=== PATIENT | female | born 1940 | race Two or more races ===

== ENCOUNTER 2024-11-26 16:07 | Inpatient (IN) | payer OTHER, MEDICAID, MEDICARE, SELFPAY ==
[2024-11-26 16:09] VITALS: BMI 26.4
[2024-11-26 16:40] VITALS: BP 109/69; PULSE 102; RESP 18; TEMP 37.4; O2SAT 92
--- NOTE | 2024-11-26 16:44 | XR_ITS ---
Examination: AP lateral chest 2 views TECHNIQUE: Upright AP lateral chest 2 views Date and time: November 26, 2024 1709 hours INDICATIONS: Chest pain today. FINDINGS: Normal heart size. Moderate hyperexpansion. No pneumonia or pulmonary edema IMPRESSION: COPD, moderate hyperexpansion No pneumonia or pulmonary edema
--- NOTE | 2024-11-26 16:44 | EKG_ITS ---
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
[2024-11-26 17:10] LABS: Basophils # (Auto) 0.1 Thou/mm3 (0.0-0.2); Basophils % (Auto) 1 % (0-2.5); Eosinophils # (Auto) 0.1 Thou/mm3 (0.0-0.5); Eosinophils % (Auto) 1 % (0-10); Hematocrit 49.5 % (36.0-46.0); Hemoglobin 17.1 g/dL (12.0-16.0); Immature Granulocytes Auto 0.04 Thou/mm3 (0.00-0.00); Lymphocytes # (Auto) 2.6 Thou/mm3 (1.0-4.8); Lymphocytes % (Auto) 20 % (10-50); Mean Corpuscular HGB Conc 34.5 g/dl (31.0-37.0); Mean Corpuscular Hemoglobin 30.5 pg (25.0-35.0); Mean Corpuscular Volume 88 fL (80-100); Monocytes # (Auto) 0.8 Thou/mm3 (0.0-0.8); Monocytes % (Auto) 6 % (0-12); Neutrophils # (Auto) 9.1 Thou/mm3 (1.8-7.7); Neutrophils % (Auto) 72 % (37-80); Nucleated Red Blood Cell # 0.00 Thou/mm3 (0.00-0.00); Nucleated Red Blood Cell % 0 /100 WBC (0); Platelet Count 159 Thou/mm3 (140-440); RDW Standard Deviation 44.0 fL (36.4-46.3); Red Blood Count 5.60 Miln/mm3 (4.00-5.20); White Blood Count 12.7 Thou/mm3 (3.6-11.0)
[2024-11-26 17:27] LABS: INR 1.0 (0.9-1.3); Partial Thromboplastin Time 27.3 Seconds (22.0-36.0); Prothrombin Time 11.1 Seconds (9.0-12.2)
[2024-11-26 17:39] LABS: B-Type Natriuretic Peptide 31 pg/mL (0-100)
[2024-11-26 17:51] LABS: Alanine Aminotransferase 7 U/L (10-49); Albumin, Serum 4.7 gm/dL (3.4-4.8); Albumin/Globulin Ratio 1.4 (1.2-2.2); Alkaline Phosphatase 95 U/L (46-116); Anion Gap 12 (7-16); Aspartate Amino Transferase 19 U/L (0-34); BUN/Creatinine Ratio 12 Ratio (12-20); Bilirubin,Total 0.7 mg/dL (0.3-1.2); Blood Urea Nitrogen 17 mg/dL (9-23); Calcium 10.6 mg/dL (8.3-10.6); Calcium (Corrected) 10.6 mg/dL (8.5-10.1); Carbon Dioxide 18.2 mMol/L (20.0-31.0); Chloride 109 mMol/L (98-107); Creatinine (Component) 1.4 mg/dL (0.6-1.3); Estimated Creatinine Clearance 30.2 mL/min (>60); Globulin 3.3 gm/dL (2.3-3.5); Glucose 130 mg/dL (74-106); Magnesium 2.2 mg/dL (1.6-2.6); Osmolality,Calculated 281 (275-295); Potassium 4.2 mMol/L (3.4-5.1); Sodium 139 mMol/L (136-145); Total Protein 8.0 gm/dL (5.7-8.2); Troponin I < 0.020 ng/mL (0.0-0.045); eGFR 38 See Note
[2024-11-26 18:09] LABS: Strep A Rapid Negative (Negative)
[2024-11-26 21:55] VITALS: BP 100/79; PULSE 100; RESP 17; TEMP 37.7; O2SAT 93
[2024-11-26 22:04] LABS: Collection Type, Urine Clean Catch
--- NOTE | 2024-11-26 22:07 | PD.EDDENTL ---
ED Dental RME/HPI General Chief complaint: Weakness Stated complaint: THROAT PAIN AND FATIGUED X3 DAYS Time Seen by Provider: 11/26/24 21:53 Arrival date/time: 11/26/24 16:07 RME / HPI RME / HPI Narrative: DR. ARMENDARIZ MAIN ED EVALUATION: 83 y/o female with Hx of smoking presents to ED c/o throat pain and painful swallowing x 1 week. Patient has now gone 3 days without food or water due to the pain. Patient also reports gooey stuff that develops in her throat. She has been holding her throat to be able to swallow very small amounts of water. Denies vomiting, diarrhea, constipation, and bloody or tarry stool. Denies fever and chills. Related Data Home Medications ?Medication ?Instructions ?Recorded ?Confirmed albuterol sulfate 90 mcg/actuation 2 puff inhalation Q6H PRN Wheezing 03/30/21 03/30/21 aerosol inhaler gabapentin 400 mg capsule 400 mg PO HS 03/30/21 03/30/21 lisinopril 10 mg tablet 10 mg PO QDAY 03/30/21 03/30/21 lorazepam 0.5 mg tablet 0.5 mg PO QDAY 03/30/21 03/30/21 lovastatin 20 mg tablet 20 mg PO HS 03/30/21 03/30/21 Previous Rx's ?Medication ?Instructions ?Recorded hydrocodone 10 mg-acetaminophen 1 tab PO TID PRN breakthrough pain 04/01/21 325 mg tablet #0 tabs Allergies Allergy/AdvReac Type Severity Reaction Status Date / Time codeine Allergy Severe PASS OUT Verified 11/26/24 16:09 Review of Systems Review of Systems Systems Reviewed: All systems reviewed, normal except as documented Past Medical History Social History SMOKING STATUS: Former smoker ED Exam Narrative Physical exam: GENERAL APPEARANCE: alert and oriented x 4, well-developed, well-nourished, no acute distress VITALS: All vitals were reviewed and the pulse ox is 93% on room air, which is abnormal according to my interpretation. HEENT: Normocephalic, atraumatic; pupils equal, round, reactive to light; EOMI; Dry lips, tacky mucous membranes, pink; oropharynx clear NECK: Supple LUNGS: CTABL; no wheezes, no rales, no rhonchi HEART: Regular rate, regular rhythm; normal S1, S2; no murmurs ABDOMEN: non distended; normal BS; soft, no tenderness, no guarding, no rebound; no masses, no organomegaly, no hernia BACK: no CVA tenderness EXTREMITIES: atraumatic; no edema NEUROLOGIC: awake; alert and oriented x4; cranial nerves II-XII grossly intact; no focal sensory or motor deficits PSYCHIATRIC: appropriate mood and affect SKIN: warm, dry, normal color; no rashes Course Course Course Narrative: CXR is ordered for determining the etiology of shortness of breath. Quality Measures none Orders Category Date Time Status Bedside COVID-19 Antigen Test NOW Care 11/26/24 16:44 Active Bedside Influenza A&B Antigen Test NOW Care 11/26/24 16:44 Completed EKG (ED ONLY) *Do not use* NOW Care 11/26/24 16:44 Completed Endoscopy Consents .On arrival Care 11/26/24 22:37 Active NPO after Midnight ONCE Care 11/26/24 22:13 Active Consult to Gastroenterology Stat Cons 11/26/24 22:13 Ordered Diet NPO after Midnight Diet 11/27/24 00:01 Active EKG (ED Only) Stat Exams 11/26/24 16:44 Draft XR chest 2V Stat Exams 11/26/24 16:44 Completed B-Type Natriuretic Peptide Stat Lab 11/26/24 17:04 Completed CBC Stat Lab 11/26/24 17:04 Completed Comprehensive Metabolic Panel Stat Lab 11/26/24 17:04 Completed Magnesium Stat Lab 11/26/24 17:04 Completed Partial Thromboplastin Time Stat Lab 11/26/24 17:04 Completed Prothrombin Time with INR Stat Lab 11/26/24 17:04 Completed Strep A Rapid Stat Lab 11/26/24 17:15 Completed Troponin I Stat Lab 11/26/24 17:04 Completed Urinalysis Stat Lab 11/26/24 21:59 Completed Sodium Chloride 0.9% 1000 ml [Ns] 1,000 ml Med 11/26/24 21:54 Discontinued IV 999 mls/hr Sodium Chloride 0.9% 1000 ml [Ns] 1,000 ml Med 11/26/24 21:54 Discontinued IV 999 mls/hr Vital Signs Vital signs: Vital Signs Temperature 99.4 F 11/26/24 16:40 Pulse Rate 102 H 11/26/24 16:40 Respiratory Rate 18 11/26/24 16:40 Blood Pressure 109/69 11/26/24 16:40 Pulse Oximetry (%) 92 L 11/26/24 16:40 Oxygen Delivery Method Room Air 11/26/24 16:40 Dental / Oral MDM Narrative MDM Narrative:: Scribe Attestation: I, Qiandyllan Joe, am scribing for and in the presence of Dr. Armendariz. Provider Notation: Although this document has been carefully reviewed, there may still be some phonetic and other typographical errors.? These errors are purely grammatical due to imperfections in the software program and should not be construed in any way to? compromise the substance of the patient's medical care during this visit. Patient data External records reviewed:: [facility] previous records (No recent ED records available for review.) Clinical information provided by:: patient Social determinants that could affect healthcare access:: none Patient has the following chronic illnesses:: None reported How is presenting disease/condition affected by chronic disease/condition?: no chronic disease Evaluation data The following diagnostics were reviewed and interpreted by me:: lab results, radiology exam(s) and EKG tracing(s) (EKG manual reading, my interpretation: sinus tachycardia, rate: 107 bpm, no ST elevation, no acute ischemic changes.) Lab and/or radiology exams considered but not ordered:: None Interpretation Summary: RADIOLOGY Chest X-Ray: FINDINGS: Normal heart size. Moderate hyperexpansion. No pneumonia or pulmonary edema IMPRESSION: COPD, moderate hyperexpansion No pneumonia or pulmonary edema Medications / Prescriptions Medications or Prescriptions considered but not ordered:: None Medication administrations:: Medication Administration History Acetaminophen (Acetaminophen 325 Mg Tablet) 650 mg PO Q6H PRN PRN Reason: PAIN SCALE 1-3 (mild Stop: 12/26/24 22:48 Heparin Sodium (Porcine) (Heparin Sod Inj 5000 Unit/Ml Vial) 5,000 unit SC Q12HR PHILIPPE Stop: 12/11/24 08:59 Lactated Ringer's (Lactated Ringers) 1,000 mls @ 75 mls/hr IV .[id number] HPILIPPE Stop: 11/27/24 12:19 Last Admin: 11/26/24 23:15 Dose: 75 mls/hr Documented By: DARON Ondansetron HCl (Ondansetron Inj 2 Mg/Ml Inj 2 Ml) 4 mg IVP Q6H PRN; Protocol PRN Reason: NAUSEA OR VOMITING Stop: 12/26/24 22:48 Sennosides (Senna Tablet) 1 tab PO QDAY PRN; Protocol PRN Reason: constipation Stop: 12/26/24 22:48 Discontinued Medications Sodium Chloride (Ns) 1,000 mls @ 999 mls/hr IV .Q1H1M ONE Stop: 11/26/24 22:54 Last Infusion: 11/26/24 23:18 Dose: Infused Documented By: Admin: 11/26/24 22:17 Dose: 999 mls/hr Documented By: JACEK Sodium Chloride (Ns) 1,000 mls @ 999 mls/hr IV .Q1H1M ONE Stop: 11/26/24 22:54 Last Infusion: 11/26/24 23:18 Dose: Infused Documented By: Admin: 11/26/24 22:17 Dose: 999 mls/hr Documented By: JACEK See above Consultations Consultation(s) initiated? (list below): Yes Consultation #1 (Physician, Specialty, Details): Discussed with Dr. De Dios for consult. Reviewed the patient?s HPI, PMHx, lab and/or radiology results. Treatment plan was discussed. Will evaluate and perform endoscopy in the morning. Time: 22:12 Consultation #2 (Physician, Specialty, Details): Discussed with Resident Physician for Dr. Ceja for admission. Reviewed the patient?s HPI, PMHx, lab and/or radiology results. Discussed treatment plan. Will consult an admission to the hospitalist. Time: 22:21 Diagnosis Most likely diagnosis given after review of the tests above:: Dysphagia, Odynophagia Admission Indicated Admission indicated?: indicated Explain why admission is indicated or not indicated:: Dysphagia, Odynophagia Admission Request Was there a request for admission?: Yes Admission Attestation Admission request attestation: Discussed case with [] from Hospitalist service regarding admission. Discussed patients ED course, exam findings, labs, and radiology results. The Hospitalist [agrees,declines] to accept the patient for admission. Disposition Plan Disposition Plan: Admit Discharge Plan Plan Patient Disposition: Admit Acute Care w/in Hospital Problem List Clinical Impression: Dysphagia, Odynophagia
[2024-11-26 22:12] LABS: Bilirubin,Urine Negative (Negative); Blood,Urine Negative (Negative); Clarity,Urine Clear (Clear/Hazy); Color,Urine Yellow (Lt Yel-Yel); Glucose, Urine Negative (Negative); Ketones,Urine Trace (Negative); Leukocyte Esterase,Urine Negative (Negative); Nitrite,Urine Negative (Negative); PH,Urine 6.0 (5.0-7.0); Protein,Urine 1+ (Neg - Trace); RBC,Urine 4 /hpf (0-3); Specific Gravity,Urine 1.026 (1.001-1.035); Squamous Epithelial Cell,Urine 2 /hpf (0-5); Urobilinogen,Urine Negative mg/dL (0.0-1.0); WBC,Urine < 1 /hpf (0-5)
[2024-11-26] MEDS: SODIUM CHLORIDE 0.9% 1000 ML 1,000 ML 999 ML IV ×2 (22:17)
--- NOTE | 2024-11-26 22:37 | PD.IMCONS ---
HPI Data of Consult Primary Care Provider: Jihan Bishop PA-C Consult Narrative Reason for consult: Progressive dysphagia History of present illness: 83 years old female who is an active smoker presented to the hospital with acute onset of dysphagia and odynophagia subsequently got admitted cc:: cc: Review of Systems Review of Systems Systems Reviewed: All systems reviewed, normal except as documented Past Medical History Surgical History OTHER SURGICAL HX: Bronchial asthma/COPD Essential hypertension Meds Home Medications and Allergies Home Medications ?Medication ?Instructions ?Recorded ?Confirmed ?Type albuterol sulfate 90 mcg/actuation 2 puff inhalation Q6H PRN Wheezing 03/30/21 11/27/24 History aerosol inhaler lisinopril 10 mg tablet 10 mg PO QDAY 03/30/21 11/27/24 History lorazepam 0.5 mg tablet 0.5 mg PO QDAY 03/30/21 11/27/24 History lovastatin 20 mg tablet 20 mg PO HS 03/30/21 11/27/24 History atorvastatin 20 mg tablet 20 mg PO HS 11/27/24 11/27/24 History escitalopram oxalate 10 mg tablet 10 mg PO QDAY 11/27/24 11/27/24 History ibuprofen 600 mg tablet 600 mg PO Q6H PRN pain 11/27/24 11/27/24 History Allergies Allergy/AdvReac Type Severity Reaction Status Date / Time codeine Allergy Severe PASS OUT Verified 11/26/24 16:09 Exam Vital Signs Temp Pulse Resp BP Pulse Ox O2 Del Method 99.9 F 100 17 100/79 93 L Room Air 11/26/24 21:55 11/26/24 21:55 11/26/24 21:55 11/26/24 21:55 11/26/24 21:55 11/26/24 21:55 Constitutional Comments: Alert oriented Routine Respiratory Exam Comments: Normal to auscultation Routine Abdominal Exam Comments: Soft nontender Results Labs 11/27/24 05:12 11/27/24 05:12 Labs: Short CBC 11/26/24 Range/Units 17:04 WBC 12.7 H (3.6-11.0) Thou/mm3 Hgb 17.1 H (12.0-16.0) g/dL Hct 49.5 H (36.0-46.0) % Plt Count 159 (140-440) Thou/mm3 BMP 11/26/24 17:04 Sodium 139 Potassium 4.2 Chloride 109 H Carbon Dioxide 18.2 L BUN 17 Creatinine 1.4 H Glucose 130 H Calcium 10.6 Cardiac Enzymes 11/26/24 Range/Units 17:04 Troponin I < 0.020 (0.0-0.045) ng/mL Liver Function 11/26/24 Range/Units 17:04 Total Bilirubin 0.7 (0.3-1.2) mg/dL AST 19 (0-34) U/L ALT 7 L (10-49) U/L Alkaline Phosphatase 95 (46-116) U/L Albumin 4.7 (3.4-4.8) gm/dL Urine 11/26/24 Range/Units 21:59 Urine Color Yellow (Lt Yel-Yel) Urine Clarity Clear (Clear/Hazy) Urine pH 6.0 (5.0-7.0) Ur Specific [place] 1.026 (1.001-1.035) Urine Protein 1+ A (Neg - Trace) Urine Glucose (UA) Negative (Negative) Assessment and Plan Additional Assessment & Plan Additional Plan: Progressive dysphagia sudden onset with a dyne aphasia Plan Consent obtained for fiberoptic esophagogastroduodenoscopy with possible biopsy possible therapeutic intervention under intravenous moderate sedation Other medical problems include Essential hypertension Bronchial asthma/COPD Hyperlipidemia Thank you very much for the opportunity to participate in the care of this patient
--- NOTE | 2024-11-26 22:51 | ESHP_ITS ---
<Statement entered by Arya Crump MD - 11/27/24 03:25> I have personally seen and examined the patient. I agree with the resident's assessment and plan as documented below. Arya Crump, DO PGY-2 Internal Medicine - GME Documentation for date of: 11/26/24 HPI History of Present Illness History of present illness: 83 y/o female with Hx of smoking presents to ED c/o throat pain and painful swallowing for the past 3 days. She denies having problems initiating swallowing, she describes the it as food getting caught up and spitting up she states that she is unable to swallow food and water. She denies any changes in appetite, fevers, chills, night sweats, and pain with urination or bowel movements, blood in urine or stool. She was accompanied in by her adult daughter who lives with her. She endorses around 30 years of smoking history but now only smokes 2-3 packs a week as of recently. Patient confirms she is full code. Medical History: esophagitis,, GERD. hypertension Surgical History: cholecystectomy Allergies: codeine makes her pass out Medications: albuterol, Gabapentin. 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 No pneumonia or pulmonary edema. Urinalysis showed elevated RBCs +1 protein. Labs revealed elevated WBC, RBC, Hgb, hct, and Calcium with decreased CO2. Patient is admitted to the hospital for esophageal dysphagia will undergo workup (EGD) by GI in the morning. Exam Vital Signs Temp Pulse Resp BP Pulse Ox O2 Del Method 99.9 F 100 17 100/79 93 L Room Air 11/26/24 21:55 11/26/24 21:55 11/26/24 21:55 11/26/24 21:55 11/26/24 21:55 11/26/24 21:55 Narrative Exam GEN: AAOX3 NAD Cooperitive Neuro: Cranial nerves intact, no focal neurological deficits HEENT: NCAT trachea midline moist mucous membranes CVS: S1S2 Present no M/R/G Respi: Rhonchi heard bilaerally. No stridor or wheezing noted. ABD: Soft nontender bowel sounds present in all 4 quadrants rectal exam not performed Skin: warm, dry and intact without rashes or lesions. Nailbeds pink with no cyanosis or clubbing. Extremities: Pulses 2+ no peripheral edema present Back: Spine normal without deformity or tenderness, no CVA tenderness Results: Labs 11/26/24 17:04 11/26/24 17:04 Labs: Short CBC 11/26/24 Range/Units 17:04 WBC 12.7 H (3.6-11.0) Thou/mm3 Hgb 17.1 H (12.0-16.0) g/dL Hct 49.5 H (36.0-46.0) % Plt Count 159 (140-440) Thou/mm3 BMP 11/26/24 17:04 Sodium 139 Potassium 4.2 Chloride 109 H Carbon Dioxide 18.2 L BUN 17 Creatinine 1.4 H Glucose 130 H Calcium 10.6 Cardiac Enzymes 11/26/24 Range/Units 17:04 Troponin I < 0.020 (0.0-0.045) ng/mL Liver Function 11/26/24 Range/Units 17:04 Total Bilirubin 0.7 (0.3-1.2) mg/dL AST 19 (0-34) U/L ALT 7 L (10-49) U/L Alkaline Phosphatase 95 (46-116) U/L Albumin 4.7 (3.4-4.8) gm/dL Urine 11/26/24 Range/Units 21:59 Urine Color Yellow (Lt Yel-Yel) Urine Clarity Clear (Clear/Hazy) Urine pH 6.0 (5.0-7.0) Ur Specific [place] 1.026 (1.001-1.035) Urine Protein 1+ A (Neg - Trace) Urine Glucose (UA) Negative (Negative) Quality Measures Quality Measures none Advance care planning discussed with:: patient and sibling Medications Home Medications and Allergies Home Medications ?Medication ?Instructions ?Recorded ?Confirmed ?Type albuterol sulfate 90 mcg/actuation 2 puff inhalation Q 6H PRN Wheezing 03/30/21 03/30/21 History aerosol inhaler gabapentin 400 mg capsule 400 mg PO HS 03/30/21 History lisinopril 10 mg tablet 10 mg PO QDAY 03/30/2103/30 History lorazepam 0.5 mg tablet 0.5 mg PO QDAY 03/30/2103/09 History lovastatin 20 mg tablet 20 mg PO HS 03/30/21 1 History Allergies Allergy/AdvReac Type Severity Reaction Status Date / Time codeine Allergy Severe PASS OUT Verified 11/26/24 16:09 Visit Medications Sodium Chloride (Ns) 1,000 mls @ 999 mls/hr IV .Q1H1M ONE Stop: 11/26/24 22:54 Last Admin: 11/26/24 22:17 Dose: 999 mls/hr Sodium Chloride (Ns) 1,000 mls @ 999 mls/hr IV .Q1H1M ONE Stop: 11/26/24 22:54 Last Admin: 11/26/24 22:17 Dose: 999 mls/hr Assessment & Plan Plan 83 y/o female with Hx of smoking presents to ED c/o throat pain and painful swallowing for the past 3 days. #oropharngeal vs esophageal dysphagia Patient does not report trouble initiating swallowing. Describes the sensation of food and liquids being caught in her throat. Has a history of GERD and esophagitis, and long time smoking raising concerns for squamous cell cancer of the throat. Plan GI is consulted, recs appreciated. FUP with EGD in the morning NPO for EGD #ELIZABETH Creatinine 1.4, Cr/Cl 30.2 and eGFR 38. Plan LR 75 cc FUP renal function panel #Elevated RBC, Hgb, HCT Most likely humoural concentration due to volume depletion - patient not able to drink for 3 days. Plan Volume replete patient with LR Health Maintenance Lines: PIV Diet: NPO Bowel: Senna GI prophylaxis: zofran DVT prophylaxis: heparin Dispo: 3 days of esophageal dysphagia plan to EGD in am will follow up with GI recs Code: Full Patient seen and evaluated with attending Dr. Ceja and Dr. Crump. Note written by Gurpreet Peters MD PGY-1 Attending Provider Attestation/Addendum I attest that I was physically present for the evaluation, physical examination, lab and imaging review of the patient with the residents. I discussed the case with the residents and agree with the findings and plans of care as documented above. After examination of the patient and review of the clinical data I feel that this patient needs admission to the hospital for further treatment/evaluation. Patient is an 83 years old female with past medical history of hypertension who presented to the ED with complaint of pain and difficulty with swallowing. She has been having difficulty with initiating swallowing and has been having feeling of food getting caught up for the last 3 days. She has been having difficulty swallowing with both solids and liquids. Denies any fever, chills, change in bowel or bladder habit. In the ED, chest x-ray showed findings of COPD. Lab results showed leukocytosis, elevated hemoglobin, calcium of 10.6 likely from hemoconcentration. She is also noted to have BUN/creatinine of 17/1.4. Has bicarbonate level of 18.2, lactate and beta hydroxybutyrate within normal limits. Gastroenterology has been contacted by ED, patient is planned for EGD tomorrow. We will admit the patient for management of dysphagia leading to decreased oral intake. We will keep her n.p.o. for EGD tomorrow. Started on IV hydration for ELIZABETH, we will follow-up with renal panel. Fred Ceja MD
[2024-11-26 23:14] LABS: Lactate (Lactic Acid) 1.9 mMol/L (0.4-2.0)
[2024-11-26] MEDS: RINGERS LACTATED 1000 ML 1,000 ML 75 ML IV (23:15)
[2024-11-26 23:16] LABS: Beta Hydroxybutyrate 0.5 mmol/L (<0.6)
[2024-11-26 23:53] VITALS: BMI 28.1
[2024-11-27] VITALS (17 sets, daily range): BP systolic 135–194; BP diastolic 63–117; PULSE 73–94; RESP 12–22; TEMP 36.2–37.2; O2SAT 91–100; BMI 28.0
--- NOTE | 2024-11-27 00:32 | PC.NURSE ---
pt stated will ask daughter to bring list of meds tomorrow to complete med rec.
--- NOTE | 2024-11-27 01:25 | PC.NURSE ---
pt ambulating around [place] with daughter at this time.
--- NOTE | 2024-11-27 02:47 | PC.NURSE ---
pt complains of restless leg pain and requested SCD's. Dr castillo notified. new order received.
[2024-11-27 06:21] LABS: Basophils # (Auto) 0.1 Thou/mm3 (0.0-0.2); Basophils % (Auto) 1 % (0-2.5); Eosinophils # (Auto) 0.1 Thou/mm3 (0.0-0.5); Eosinophils % (Auto) 1 % (0-10); Hematocrit 46.0 % (36.0-46.0); Hemoglobin 15.5 g/dL (12.0-16.0); Immature Granulocytes Auto 0.02 Thou/mm3 (0.00-0.00); Lymphocytes # (Auto) 2.4 Thou/mm3 (1.0-4.8); Lymphocytes % (Auto) 20 % (10-50); Mean Corpuscular HGB Conc 33.7 g/dl (31.0-37.0); Mean Corpuscular Hemoglobin 31.1 pg (25.0-35.0); Mean Corpuscular Volume 92 fL (80-100); Monocytes # (Auto) 0.8 Thou/mm3 (0.0-0.8); Monocytes % (Auto) 6 % (0-12); Neutrophils # (Auto) 8.6 Thou/mm3 (1.8-7.7); Neutrophils % (Auto) 72 % (37-80); Nucleated Red Blood Cell # 0.00 Thou/mm3 (0.00-0.00); Nucleated Red Blood Cell % 0 /100 WBC (0); Platelet Count 167 Thou/mm3 (140-440); RDW Standard Deviation 46.3 fL (36.4-46.3); Red Blood Count 4.99 Miln/mm3 (4.00-5.20); White Blood Count 12.0 Thou/mm3 (3.6-11.0)
[2024-11-27] MEDS: MORPHINE SULF INJ 10 MG/ML VIAL IVP ×2 (06:31→17:05)
[2024-11-27 06:42] LABS: Albumin, Serum 4.3 gm/dL (3.4-4.8); Anion Gap 11 (7-16); BUN/Creatinine Ratio 23 Ratio (12-20); Blood Urea Nitrogen 27 mg/dL (9-23); Calcium 9.7 mg/dL (8.3-10.6); Calcium (Corrected) 9.7 mg/dL (8.5-10.1); Carbon Dioxide 23.9 mMol/L (20.0-31.0); Chloride 110 mMol/L (98-107); Creatinine (Component) 1.2 mg/dL (0.6-1.3); Estimated Creatinine Clearance 36.3 mL/min (>60); Glucose 106 mg/dL (74-106); Osmolality,Calculated 293 (275-295); Phosphorous 2.5 mg/dL (2.4-5.1); Potassium 3.8 mMol/L (3.4-5.1); Sodium 145 mMol/L (136-145); eGFR 45 See Note
--- NOTE | 2024-11-27 13:58 | ESPR_ITS ---
<Statement entered by Prudence Gomez MD - 11/28/24 14:41> I have reviewed the note and agree with the resident's assessment & plan with exceptions as below. I have personally reviewed labs, imaging, home meds/prior records, examined the patient, formulated and discussed management plan with the IM team. Patient examined at bedside today. Patient reports no recent weight loss, however acute onset of her dysphagia. She says this is never happened before, no recent travel. There has been significant smoking history in the past. Patient will need further workup including EGD tonight for evaluation of possible malignant process that could be contributing to her dysphagia. GI on consult, appreciate recommendations. Will also get speech therapy on for further recommendations. Repeat hematology and chemistry in the a.m. Prudence Gomez, PGY-2 Internal Medicine Documentation for date of: 11/27/24 Subjective Subjective Interval history: Patient seen and examined at bedside this morning. The patient had restless legs, and discomfort in the bilateral lower extremity overnight and had difficulty sleeping. She received Morphine 1mg IVx1 to help with the discomfort early this morning, which allowed her to finally get some sleep. She denies having a bowel movement during her hospital stay, but is able to pass gas. She denies dysuria, chest pain, fevers, and chills. She confirms sob. Exam Vital Signs Temp Pulse Resp BP Pulse Ox O2 Del Method 97.1 F 83 18 135/79 H 94 L Room Air 11/27/24 12:00 11/27/24 12:00 11/27/24 12:00 11/27/24 12:00 11/27/24 12:11/27/24 12:00 Narrative Exam General: Patient is A&O X3, NAD HEENT: Normocephalic atraumatic, PERRL, EOMI, Cardio: RRR, S1,S2, no murmurs rubs or gallops, 2+ peripheral pulses, no lower extremity edema Pulm: Wheezing auscultated in the bilateral lower lobes, no crackles or rhonchi noted Abdominal:Bowel sounds present x4, abdomen soft, nontender with no rigidity or guarding MSK: 5/5 strength bilateral upper and lower extremity. Neuro: CN2-12 grossly intact, sensation intact bilateral upper and lower extremity Objective Labs 11/28/24 05:11/28/24 05:01 Labs: Laboratory Results - last 24 hr 11/26/24 11/26/24 11/26/24 17:04 17:15 21:59 WBC 12.7 H RBC 5.60 H Hgb 17.1 H Hct 49.5 H MCV 88 MCH 30.5 MCHC 34.5 RDW Std Deviation 44.0 Plt Count 159 Neut % (Auto) 72 Lymph % (Auto) 20 Rains % (Auto) 6 Eos % (Auto) 1 Baso % (Auto) 1 Neut # (Auto) 9.1 H Lymph # (Auto) 2.6 Rains # (Auto) 0.8 Eos # (Auto) 0.1 Baso # (Auto) 0.1 Immature Gran # (Auto) 0.04 H Absolute Nucleated RBC 0.00 Immature Gran % 0 Nucleated RBC % 0 PT 11.1 INR 1.0 APTT 27.3 Sodium 139 Potassium 4.2 Chloride 109 H Carbon Dioxide 18.2 L Anion Gap 12 BUN 17 Creatinine 1.4 H Estim Creat Clear Calc 30.2 L eGFR 38 L BUN/Creatinine Ratio 12 Glucose 130 H Calculated Osmolality 281 Lactic Acid Calcium 10.6 Corrected Calcium 10.6 H Phosphorus Magnesium 2.2 Total Bilirubin 0.7 AST 19 ALT 7 L Alkaline Phosphatase 95 Troponin I < 0.020 B-Natriuretic Peptide 31 Total Protein 8.0 Albumin 4.7 Globulin 3.3 Albumin/Globulin Ratio 1.4 Beta-Hydroxybutyrate/Acetoacetate Ur Collection Type Clean Catch Urine Color Yellow Urine Clarity Clear Urine pH 6.0 Ur Specific [place] 1.026 Urine Protein 1+ A Urine Glucose (UA) Negative Urine Ketones Trace Urine Blood Negative Urine Nitrite Negative Urine Bilirubin Negative Urine Urobilinogen (Auto) Negative Ur Leukocyte Esterase Negative Urine RBC 4 H Urine WBC < 1 Ur Squamous Epith Cells 2 Urine Bacteria None Group A Strep Rapid Negative 11/26/24 11/27/24 23:00 05:12 WBC 12.0 H RBC 4.99 Hgb 15.5 Hct 46.0 MCV 92 MCH 31.1 MCHC 33.7 RDW Std Deviation 46.3 Plt Count 167 Neut % (Auto) 72 Lymph % (Auto) 20 Rains % (Auto) 6 Eos % (Auto) 1 Baso % (Auto) 1 Neut # (Auto) 8.6 H Lymph # (Auto) 2.4 Rains # (Auto) 0.8 Eos # (Auto) 0.1 Baso # (Auto) 0.1 Immature Gran # (Auto) 0.02 H Absolute Nucleated RBC 0.00 Immature Gran % 0 Nucleated RBC % 0 PT INR APTT Sodium 145 Potassium 3.8 Chloride 110 H Carbon Dioxide 23.9 Anion Gap 11 BUN 27 H Creatinine 1.2 Estim Creat Clear Calc 36.3 L eGFR 45 L BUN/Creatinine Ratio 23 H Glucose 106 Calculated Osmolality 293 Lactic Acid 1.9 Calcium 9.7 Corrected Calcium 9.7 Phosphorus 2.5 Magnesium Total Bilirubin AST ALT Alkaline Phosphatase Troponin I B-Natriuretic Peptide Total Protein Albumin 4.3 Globulin Albumin/Globulin Ratio Beta-Hydroxybutyrate/Acetoacetate 0.5 Ur Collection Type Urine Color Urine Clarity Urine pH Ur Specific [place] Urine Protein Urine Glucose (UA) Urine Ketones Urine Blood Urine Nitrite Urine Bilirubin Urine Urobilinogen (Auto) Ur Leukocyte Esterase Urine RBC Urine WBC Ur Squamous Epith Cells Urine Bacteria Group A Strep Rapid Quality Measures Quality Measures none Advance care planning discussed with:: patient Assessment & Plan Assessment Current Active Medications: Generic Name Dose Route Start Last Admin Trade Name Freq PRN Reason Stop Dose Admin Acetaminophen 650 mg 11/26/24 22:49 Acetaminophen 325 Mg Tablet PO 12/26/24 22:48 Q6H PRN PAIN SCALE 1-3 (mild Hydrocodone Bitart/Acetaminophen 1 tab 11/27/24 11:03 Hydrocodone/Apap 10/325 Tab PO 12/02/24 11:02 Q8HR PRN pain 4-7 or breakthrough pain Atorvastatin Calcium 20 mg 11/27/24 21:00 Atorvastatin Calcium 20 Mg Tablet PO 12/27/24 20:59 HS [facility] Escitalopram Oxalate 10 mg 11/27/24 11:15 11/27/24 12:01 Escitalopram Oxalate 10 Mg Tablet PO 12/27/24 11:14 Not Given QDAY [facility] Gabapentin 300 mg 11/27/24 11:15 11/27/24 12:01 Gabapentin 300 Mg Capsule PO 12/27/24 11:14 Not Given BID [facility] Heparin Sodium (Porcine) 5,000 unit 11/27/24 09:00 11/27/24 08:47 Heparin Sod Inj 5000 Unit/Ml Vial SC 12/11/24 08:59 Not Given Q12HR [facility] Lisinopril 10 mg 11/28/24 09:00 Lisinopril 2.5 Mg Tablet PO 12/28/24 08:59 QDAY [facility] Ondansetron HCl 4 mg 11/26/24 22:49 Ondansetron Inj 2 Mg/Ml Inj 2 Ml IVP 12/26/24 22:48 Q6H PRN NAUSEA OR VOMITING Protocol Sennosides 1 tab 11/26/24 22:49 Senna Tablet PO 12/26/24 22:48 QDAY PRN constipation Protocol Plan 83 y/o female with Hx of smoking, asthma, HTN, and T2DM presents to ED c/o throat pain and difficulty swallowing for the past 3 days. She was found to have ELIZABETH, and was admitted for dysphagia/odynophagia. #Esophageal dysphagia Patient does not report trouble initiating swallowing. Endorses sensation of food and liquids being caught in her throat. Has a history of GERD and gastritis, and significant smoking hx EGD 2020: mild chronic gastritis Sudden onset with inability to swallow solids and liquids at onset raises concern for mechanical obstruction due to peptic strictures, malignancy, paraesophageal hernia motility disorders such as achalasia/scleroderma/ERICH less likely Plan: GI is consulted, recs appreciated. Patient will undergo EGD this evening Patient is NPO #ELIZABETH Creatinine 1.4, Cr/Cl 30.2 and eGFR 38 on admit Downtrending today, notably BUN/Cr is 23 indicating prerenal elizabeth in the setting of the patient not tolerating po for the past 4 days Plan: Trend CMP #Asthma Hx of asthma, RR wnl, Spo2 range 93-94 overnight Bilateral wheezes noted in the bilateral lung bases Plan: -Albuterol sulfate 2 puff Q6H prn #HLD Home medication is atorvastatin 20 mg PO HS Plan: Resume once patient can tolerate po #Hypertension Patient home medication includes lisinopril 10mg po qd BP in the 130-140s systolic Plan: Resume once patient can tolerate po #Elevated RBC, Hgb, HCT (resolved) Most likely hemoconcentration due to volume depletion - patient not able to drink for 3 days. Volume repleted patient with LR Health Maintenance: Disposition: Med tele DVT Prophylaxis: Heparin Q12 GI Prophylaxis: None Diet: NPO CODE STATUS: Full Code Case and Plan discussed with my attending physician, Dr. Ferreira , and my senior resident, Dr. Patricia العراقي, [facility] Attending Provider Attestation/Addendum I have discussed and was present for the essential components of the history, physical examination, diagnosis, and treatment plan with the resident. I agree with the patient's care as documented by the resident and amended herein by me. Demar Ferreira DO. Although this document has been carefully reviewed, there may still be some phonetic and other typographical errors. These errors are purely grammatical due to imperfections in the software program and should not be construed in any way to compromise the substance of the patient's medical care during this visit.
--- NOTE | 2024-11-27 17:33 | PD.RESPRO ---
Documentation for date of: 11/27/24 Subjective Subjective Interval history: Patient is an 83-year-old female with past medical history of HTN, HLD, COPD, and DM presenting to the hospital for throat pain and difficulty swallowing. This started approximately 4 days ago when she woke up suddenly, felt a lump in her throat , and could not swallow anything, either solid or liquid. She has never had this happen before, and had not had any change in her activity prior to this happening. She denies any history of thyroid issues. PMH: HTN, DM, HLD, COPD PSH: Cholecystectomy Social history: 63Y X0.3 PPD = 18-[id number] history of smoking; current smoker; denies alcohol or substance use Exam Vital Signs Temp Pulse Resp BP Pulse Ox O2 Del Method 97.1 F 83 18 150/75 H 100 Room Air 11/27/24 15:38 11/27/24 15:38 11/27/24 15:38 11/27/24 15:38 11/27/24 15:38 11/27/24 15:38 Routine Neck Exam Comments: No swelling or obvious mass palpated; supraclavicular lymph nodes not palpable Routine Respiratory Exam Respiratory: Present lungs clear and CTA bilaterally Routine Cardiovascular Exam Cardiovascular: Present RRR, S1 and S2 Routine Abdominal Exam Abdominal: Present soft and normoactive bowel sounds Comments: Nontender with superficial or deep palpation Objective Labs 11/27/24 05:12 11/27/24 05:12 Labs: Laboratory Results - last 24 hr 11/26/24 11/26/24 11/26/24 17:04 17:15 21:59 WBC RBC Hgb Hct MCV MCH MCHC RDW Std Deviation Plt Count Neut % (Auto) Lymph % (Auto) [place] % (Auto) Eos % (Auto) Baso % (Auto) Neut # (Auto) Lymph # (Auto) [place] # (Auto) Eos # (Auto) Baso # (Auto) Immature Gran # (Auto) Absolute Nucleated RBC Immature Gran % Nucleated RBC % Sodium 139 Potassium 4.2 Chloride 109 H Carbon Dioxide 18.2 L Anion Gap 12 BUN 17 Creatinine 1.4 H Estim Creat Clear Calc 30.2 L eGFR 38 L BUN/Creatinine Ratio 12 Glucose 130 H Calculated Osmolality 281 Lactic Acid Calcium 10.6 Corrected Calcium 10.6 H Phosphorus Magnesium 2.2 Total Bilirubin 0.7 AST 19 ALT 7 L Alkaline Phosphatase 95 Troponin I < 0.020 B-Natriuretic Peptide 31 Total Protein 8.0 Albumin 4.7 Globulin 3.3 Albumin/Globulin Ratio 1.4 Beta-Hydroxybutyrate/Acetoacetate Ur Collection Type Clean Catch Urine Color Yellow Urine Clarity Clear Urine pH 6.0 Ur Specific [place] 1.026 Urine Protein 1+ A Urine Glucose (UA) Negative Urine Ketones Trace Urine Blood Negative Urine Nitrite Negative Urine Bilirubin Negative Urine Urobilinogen (Auto) Negative Ur Leukocyte Esterase Negative Urine RBC 4 H Urine WBC < 1 Ur Squamous Epith Cells 2 Urine Bacteria None Group A Strep Rapid Negative 11/26/24 11/27/24 23:00 05:12 WBC 12.0 H RBC 4.99 Hgb 15.5 Hct 46.0 MCV 92 MCH 31.1 MCHC 33.7 RDW Std Deviation 46.3 Plt Count 167 Neut % (Auto) 72 Lymph % (Auto) 20 [place] % (Auto) 6 Eos % (Auto) 1 Baso % (Auto) 1 Neut # (Auto) 8.6 H Lymph # (Auto) 2.4 [place]igg # (Auto) 0.8 Eos # (Auto) 0.1 Baso # (Auto) 0.1 Immature Gran # (Auto) 0.02 H Absolute Nucleated RBC 0.00 Immature Gran % 0 Nucleated RBC % 0 Sodium 145 Potassium 3.8 Chloride 110 H Carbon Dioxide 23.9 Anion Gap 11 BUN 27 H Creatinine 1.2 Estim Creat Clear Calc 36.3 L eGFR 45 L BUN/Creatinine Ratio 23 H Glucose 106 Calculated Osmolality 293 Lactic Acid 1.9 Calcium 9.7 Corrected Calcium 9.7 Phosphorus 2.5 Magnesium Total Bilirubin AST ALT Alkaline Phosphatase Troponin I B-Natriuretic Peptide Total Protein Albumin 4.3 Globulin Albumin/Globulin Ratio Beta-Hydroxybutyrate/Acetoacetate 0.5 Ur Collection Type Urine Color Urine Clarity Urine pH Ur Specific [place] Urine Protein Urine Glucose (UA) Urine Ketones Urine Blood Urine Nitrite Urine Bilirubin Urine Urobilinogen (Auto) Ur Leukocyte Esterase Urine RBC Urine WBC Ur Squamous Epith Cells Urine Bacteria Group A Strep Rapid Quality Measures Quality Measures none Assessment & Plan Assessment Current Active Medications: Generic Name Dose Route Start Last Admin Trade Name Freq PRN Reason Stop Dose Admin Acetaminophen 650 mg 11/26/24 22:49 Acetaminophen 325 Mg Tablet PO 12/26/24 22:48 Q6H PRN PAIN SCALE 1-3 (mild Hydrocodone Bitart/Acetaminophen 1 tab 11/27/24 11:03 Hydrocodone/Apap 10/325 Tab PO 12/02/24 11:02 Q8HR PRN pain 4-7 or breakthrough pain Albuterol 2 puff 11/27/24 17:07 Albuterol Inh 8 Gm INH 12/27/24 17:06 Q6HRRT PRN SHORTNESS OF BREATH OR WHEEZE Atorvastatin Calcium 20 mg 11/27/24 21:00 Atorvastatin Calcium 20 Mg Tablet PO 12/27/24 20:59 HS [facility] Escitalopram Oxalate 10 mg 11/27/24 11:15 11/27/24 12:01 Escitalopram Oxalate 10 Mg Tablet PO 12/27/24 11:14 Not Given QDAY [facility] Gabapentin 300 mg 11/27/24 11:15 11/27/24 12:01 Gabapentin 300 Mg Capsule PO 12/27/24 11:14 Not Given BID [facility] Heparin Sodium (Porcine) 5,000 unit 11/27/24 09:00 11/27/24 08:47 Heparin Sod Inj 5000 Unit/Ml Vial SC 12/11/24 08:59 Not Given Q12HR [facility] Lisinopril 10 mg 11/28/24 09:00 Lisinopril 2.5 Mg Tablet PO 12/28/24 08:59 QDAY [facility] Ondansetron HCl 4 mg 11/26/24 22:49 Ondansetron Inj 2 Mg/Ml Inj 2 Ml IVP 12/26/24 22:48 Q6H PRN NAUSEA OR VOMITING Protocol Sennosides 1 tab 11/26/24 22:49 Senna Tablet PO 12/26/24 22:48 QDAY PRN constipation Protocol Plan Patient is an 83-year-old female with PMH of COPD, HTN, DM, HLD presenting for throat pain and difficulty swallowing solids and liquids. #Throat pain/dysphagia No obvious mass palpated Plan: #COPD, HTN, DM, HLD Plan: Per primary team
--- NOTE | 2024-11-27 18:40 | PD.IMPROG ---
Documentation for date of: 11/27/24 Exam Vital Signs Temp Pulse Resp BP Pulse Ox O2 Del Method 97.1 F 77 18 150/75 H 100 Room Air 11/27/24 15:38 11/27/24 16:00 11/27/24 15:38 11/27/24 15:38 11/27/24 15:38 11/27/24 15:38 Objective Labs 11/27/24 05:12 11/27/24 05:12 Labs: Laboratory Results - last 24 hr 11/26/24 11/26/24 11/27/24 21:59 23:00 05:12 WBC 12.0 H RBC 4.99 Hgb 15.5 Hct 46.0 MCV 92 MCH 31.1 MCHC 33.7 RDW Std Deviation 46.3 Plt Count 167 Neut % (Auto) 72 Lymph % (Auto) 20 [place] % (Auto) 6 Eos % (Auto) 1 Baso % (Auto) 1 Neut # (Auto) 8.6 H Lymph # (Auto) 2.4 [place] # (Auto) 0.8 Eos # (Auto) 0.1 Baso # (Auto) 0.1 Immature Gran # (Auto) 0.02 H Absolute Nucleated RBC 0.00 Immature Gran % 0 Nucleated RBC % 0 Sodium 145 Potassium 3.8 Chloride 110 H Carbon Dioxide 23.9 Anion Gap 11 BUN 27 H Creatinine 1.2 Estim Creat Clear Calc 36.3 L eGFR 45 L BUN/Creatinine Ratio 23 H Glucose 106 Calculated Osmolality 293 Lactic Acid 1.9 Calcium 9.7 Corrected Calcium 9.7 Phosphorus 2.5 Albumin 4.3 Beta-Hydroxybutyrate/Acetoacetate 0.5 Ur Collection Type Clean Catch Urine Color Yellow Urine Clarity Clear Urine pH 6.0 Ur Specific [place] 1.026 Urine Protein 1+ A Urine Glucose (UA) Negative Urine Ketones Trace Urine Blood Negative Urine Nitrite Negative Urine Bilirubin Negative Urine Urobilinogen (Auto) Negative Ur Leukocyte Esterase Negative Urine RBC 4 H Urine WBC < 1 Ur Squamous Epith Cells 2 Urine Bacteria None Assessment & Plan Time Spent With Patient Time: Total time spent is greater than 50% in coordination of care (as documented) at patient's floor/unit and/or counseling patient:
--- NOTE | 2024-11-27 19:35 | SUR.PHASEI ---
received pt and report from JESSIE Merchant, pt arousable to voice. BP slightly elevated. Per BP flowsheet , bp is at running same during the procedure. will continue to monitor. Pt denies any pain or nausea,. IV intact, no s/s of infiltration or redness noted to site.
--- NOTE | 2024-11-27 19:47 | XR_ITS ---
Examination: CT soft tissue neck, with intravenous contrast. 2-D coronal reconstructions. 2-D sagittal reconstructions. Date and time of exam :November 27, 2024 2115 hours INDICATIONS: Difficulty swallowing today. CTDI: vol (mGy):10.7 DLP: (mGycm):235 Technique: 1.25 mm axial sections of the neck of the obtained. Coronal and sagittal reconstructions have been obtained. Intravenous contrast administered 50 cc Isovue-370. Low dose protocols were performed. One or more of the following dose reduction techniques were used; automated exposure control, adjustment of the mA and/or KV according to patient size, use of iterative reconstruction technique. Findings: Symmetrical nasopharynx oropharynx No pathologic cervical lymphadenopathy The larynx appears normal Thyroid lobes are not enlarged Cervical esophagus just does not show dilatation or wall thickening Advanced degenerative disc disease C4-C5, C5-C6 with prominent posterior osteophyte 5 mm at the inferior posterior margin C5 producing severe spinal stenosis Normal epiglottis IMPRESSION: No neck soft tissue mass or pathologic cervical lymphadenopathy Cervical esophagus does not show dilatation or wall thickening Advanced degenerative disc disease C4-C5, C5-C6 Prominent osteophyte at the inferior posterior margin C5 producing severe cervical spinal stenosis, consider MRI cervical spine without contrast follow-up
--- NOTE | 2024-11-27 19:55 | SUR.PHASEI ---
pt recovering well, vss, iv intact no ss of infiltration or redness to site. pt denies any pain or nausea. report given to JESSIE Voss.
[2024-11-27] MEDS: DEXTROSE 5%-0.45% NS 1,000 ML 75 ML IV (20:23)
[2024-11-27] MEDS: HEPARIN SOD INJ 5000 UNIT/ML VIAL SC (20:30)
[2024-11-27] MEDS: GABAPENTIN 300 MG CAPSULE PO (20:30)
[2024-11-27] MEDS: ATORVASTATIN CALCIUM 20 MG TABLET PO (20:30)
[2024-11-28] VITALS (9 sets, daily range): BP systolic 117–161; BP diastolic 66–94; PULSE 63–87; RESP 15–20; TEMP 36.3–36.9; O2SAT 91–95
[2024-11-28 06:32] LABS: Basophils # (Auto) 0.1 Thou/mm3 (0.0-0.2); Basophils % (Auto) 1 % (0-2.5); Eosinophils # (Auto) 0.2 Thou/mm3 (0.0-0.5); Eosinophils % (Auto) 2 % (0-10); Hematocrit 41.0 % (36.0-46.0); Hemoglobin 13.6 g/dL (12.0-16.0); Immature Granulocytes Auto 0.03 Thou/mm3 (0.00-0.00); Lymphocytes # (Auto) 2.4 Thou/mm3 (1.0-4.8); Lymphocytes % (Auto) 24 % (10-50); Mean Corpuscular HGB Conc 33.2 g/dl (31.0-37.0); Mean Corpuscular Hemoglobin 30.4 pg (25.0-35.0); Mean Corpuscular Volume 92 fL (80-100); Monocytes # (Auto) 0.8 Thou/mm3 (0.0-0.8); Monocytes % (Auto) 8 % (0-12); Neutrophils # (Auto) 6.6 Thou/mm3 (1.8-7.7); Neutrophils % (Auto) 66 % (37-80); Nucleated Red Blood Cell # 0.00 Thou/mm3 (0.00-0.00); Nucleated Red Blood Cell % 0 /100 WBC (0); Platelet Count 142 Thou/mm3 (140-440); RDW Standard Deviation 46.3 fL (36.4-46.3); Red Blood Count 4.47 Miln/mm3 (4.00-5.20); White Blood Count 10.0 Thou/mm3 (3.6-11.0)
[2024-11-28 07:04] LABS: Alanine Aminotransferase 9 U/L (10-49); Albumin, Serum 3.6 gm/dL (3.4-4.8); Albumin/Globulin Ratio 1.5 (1.2-2.2); Alkaline Phosphatase 74 U/L (46-116); Anion Gap 9 (7-16); Aspartate Amino Transferase 25 U/L (0-34); BUN/Creatinine Ratio 21 Ratio (12-20); Bilirubin,Total 0.6 mg/dL (0.3-1.2); Blood Urea Nitrogen 19 mg/dL (9-23); Calcium 9.3 mg/dL (8.3-10.6); Calcium (Corrected) 9.6 mg/dL (8.5-10.1); Carbon Dioxide 25.0 mMol/L (20.0-31.0); Chloride 110 mMol/L (98-107); Creatinine (Component) 0.9 mg/dL (0.6-1.3); Estimated Creatinine Clearance 48.4 mL/min (>60); Globulin 2.4 gm/dL (2.3-3.5); Glucose 96 mg/dL (74-106); Magnesium 1.7 mg/dL (1.6-2.6); Osmolality,Calculated 289 (275-295); Phosphorous 2.0 mg/dL (2.4-5.1); Potassium 3.3 mMol/L (3.4-5.1); Sodium 144 mMol/L (136-145); Total Protein 6.0 gm/dL (5.7-8.2); eGFR > 60 See Note
--- NOTE | 2024-11-28 08:14 | PC.NURSE ---
Pt refused 0730 BG check. Pt states she is not diabetic. Morning lab BG was 96. Will contiunue to monitor.
[2024-11-28] MEDS: GABAPENTIN 300 MG CAPSULE PO (08:24)
[2024-11-28] MEDS: ESCITALOPRAM OXALATE 10 MG TABLET PO (08:24)
[2024-11-28] MEDS: HEPARIN SOD INJ 5000 UNIT/ML VIAL SC ×2 (08:25→20:36)
--- NOTE | 2024-11-28 09:15 | XR_ITS ---
Examination: Iterative esophagram 51 spot fluoroscopic films soft tissue lateral neck with swallowing Fluoroscopy Date and time: November 28, 2024 1123 hours INDICATIONS: Difficulty swallowing, history esophageal stricture post dilatation TECHNIQUE AND FINDINGS: Thin barium administered with 51 spot fluoroscopic films soft tissue lateral neck There is premature transfer and swelling in the vallecular region and piriform sinuses No aspiration Proximal esophagus shows significant narrowing, at least 80% incompletely visualized IMPRESSION: Proximal esophagus shows significant narrowing incompletely visualized Fluoroscopy 0.8 minutes radiation dose 36.61 milligray, 51 spot fluoroscopic films of the esophagus
--- NOTE | 2024-11-28 10:15 | PC.SS ---
Patient is a 83 year old female who presents to the hospital for Dyspagia. DIRECTOR GOVERNMENT made contact at bedside with daughter Bette Staley ph:[phone] and explained role and reason for visit. Pt. gave consent for daughter to verify her information and Bette is next of kin. Pt. daughter confirmed patient lives with daughter Isabel. Pt. daughter confirmed emergency contact information that was obtained ?Pt. daughter reports that she ambulates using assistive device, walker and cane. Pt. does not utilize oxygen at home. Pt. daughter reported that pt. is unemployed and receives SSI. Pt. daughter stated that her PCP is Dr. Jihan Bishop and last visit was on 11/26/24. Pt. daughter stated that her pharmacy of choice is [facility]. Pt. participated in d/c plan and stated she will be returning home and is not needing any additional resources. Daughter Mery will provide transportation home. PCP:DR. Jihan Bishop Next of kin: Bette Staley ph: [phone] d/c: home with daughter ?
--- NOTE | 2024-11-28 10:43 | PC.NURSE ---
Pt was taken to XR at this time by speech therapist via wheelchair for procedure.
[2024-11-28] MEDS: POTASSIUM PHOS 22.5 MMOL in SODIUM CHLORIDE 0.9% 500 ML 500 ML 82.778 MMOL IV (12:02)
--- NOTE | 2024-11-28 13:33 | PCS.ST ---
VFSS/MBSS completed. See speech report and radiology report for details. Recommend liquids only until further GI recommendations. Blenderized diet.
--- NOTE | 2024-11-28 14:43 | ESPR_ITS ---
<Statement entered by Prudence Gomez MD - 11/28/24 18:00> I have reviewed the note and agree with the resident's assessment & plan with exceptions as below. I have personally reviewed labs, imaging, home meds/prior records, examined the patient, formulated and discussed management plan with the IM team. Patient examined bedside today. EGD showed some benign-appearing esophageal stenosis which was dilated, gastritis and esophagitis. Biopsies were also taken in which patient will need to follow-up on. Patient will continue IV Protonix. Follow-up with speech recommendations at this time as patient continues to have dysphagia, will order barium swallow and follow-up with other GI recommendations. Repeat hematology and chemistry in the a.m. Speech therapy recommending blenderized pur?ed diet at this time. Prudence Gomez, PGY-2 Internal Medicine Documentation for date of: 11/28/24 Subjective Subjective Interval history: Patient seen and examined at bedside today. She reports undergoing her EGD yesterday evening, and was able to eat some rosa maria last night. This morning she was able to drink some coffee, however was subsequently unable to swallow pills with water. She reports that the water and pills felt like they got stuck in her throat and she had to spit them back up, similar to her presenting symptoms. She reports no overnight events, was able to sleep well, and denies chest pain, sob, dysuria, and fevers. Exam Vital Signs Temp Pulse Resp BP Pulse Ox O2 Del Method O2 Flow Rate 97.9 F 85 20 117/66 94 L Room Air 2 11/28/24 08:00 11/28/24 08:24 11/28/24 08:00 11/28/24 08:24 11/28/24 08:00 11/28/24 08:00 11/27/24 19:50 Narrative Exam General: Patient is A&O X4, NAD HEENT: Normocephalic atraumatic, PERRL, EOMI, Cardio: RRR, S1,S2, no murmurs rubs or gallops, 2+ peripheral pulses, no lower extremity edema Pulm: Lungs clear to auscultation bilaterally. No wheezing, rhales or rhonchi noted. Abdominal:Bowel sounds present x4, abdomen soft, nontender with no rigidity or guarding MSK: 5/5 strength bilateral upper and lower extremity. Neuro: CN2-12 grossly intact, sensation intact bilateral upper and lower extremity Objective Labs 11/28/24 05:01 11/28/24 05:01 Labs: Laboratory Results - last 24 hr 11/28/24 05:01 WBC 10.0 RBC 4.47 Hgb 13.6 Hct 41.0 MCV 92 MCH 30.4 MCHC 33.2 RDW Std Deviation 46.3 Plt Count 142 Neut % (Auto) 66 Lymph % (Auto) 24 [place] % (Auto) 8 Eos % (Auto) 2 Baso % (Auto) 1 Neut # (Auto) 6.6 Lymph # (Auto) 2.4 [place] # (Auto) 0.8 Eos # (Auto) 0.2 Baso # (Auto) 0.1 Immature Gran # (Auto) 0.03 H Absolute Nucleated RBC 0.00 Immature Gran % 0 Nucleated RBC % 0 Sodium 144 Potassium 3.3 L D Chloride 110 H Carbon Dioxide 25.0 Anion Gap 9 BUN 19 Creatinine 0.9 Estim Creat Clear Calc 48.4 L eGFR > 60 BUN/Creatinine Ratio 21 H Glucose 96 Calculated Osmolality 289 Calcium 9.3 Corrected Calcium 9.6 Phosphorus 2.0 L Magnesium 1.7 Total Bilirubin 0.6 AST 25 ALT 9 L Alkaline Phosphatase 74 D Total Protein 6.0 Albumin 3.6 D Globulin 2.4 Albumin/Globulin Ratio 1.5 Quality Measures Quality Measures none Advance care planning discussed with:: patient Assessment & Plan Assessment Current Active Medications: Generic Name Dose Route Start Last Admin Trade Name Freq PRN Reason Stop Dose Admin Acetaminophen 650 mg 11/26/24 22:49 Acetaminophen 325 Mg Tablet PO 12/26/24 22:48 Q6H PRN PAIN SCALE 1-3 (mild Hydrocodone Bitart/Acetaminophen 1 tab 11/27/24 11:03 Hydrocodone/Apap 10/325 Tab PO 12/02/24 11:02 Q8HR PRN pain 4-7 or breakthrough pain Albuterol 2 puff 11/27/24 17:07 Albuterol Inh 8 Gm INH 12/27/24 17:06 Q6HRRT PRN SHORTNESS OF BREATH OR WHEEZE Protocol Albuterol/Ipratropium 3 ml 11/27/24 18:22 Albuterol/Ipratropium (Duoneb) Rt Hayley 3 Ml Nebu INH 12/27/24 18:59 Q6HRRT PRN wheezing Atorvastatin Calcium 20 mg 11/27/24 21:00 11/27/24 20:30 Atorvastatin Calcium 20 Mg Tablet PO 12/27/24 20:59 20 mg HS PHILIPPE Administration Escitalopram Oxalate 10 mg 11/27/24 11:15 11/28/24 08:24 Escitalopram Oxalate 10 Mg Tablet PO 12/27/24 11:14 10 mg QDAY PHILIPPE Administration Gabapentin 300 mg 11/27/24 11:15 11/28/24 08:24 Gabapentin 300 Mg Capsule PO 12/27/24 11:14 300 mg BID PHILIPPE Administration Heparin Sodium (Porcine) 5,000 unit 11/27/24 09:00 11/28/24 08:25 Heparin Sod Inj 5000 Unit/Ml Vial SC 12/11/24 08:59 5,000 unit Q12HR PHILIPPE Administration Potassium Phosphate 22.5 mmol/ 507.5 mls @ 82.778 mls/hr 11/28/24 08:38 11/28/24 12:02 Sodium Chloride IV 11/28/24 14:45 82.778 mls/hr X1 ONE Administration Lisinopril 10 mg 11/28/24 09:00 11/28/24 08:24 Lisinopril 2.5 Mg Tablet PO 12/28/24 08:59 10 mg QDAY PHILIPPE Administration Ondansetron HCl 4 mg 11/26/24 22:49 Ondansetron Inj 2 Mg/Ml Inj 2 Ml IVP 12/26/24 22:48 Q6H PRN NAUSEA OR VOMITING Protocol Pantoprazole Sodium 40 mg 11/27/24 21:00 11/28/24 08:24 Pantoprazole Inj 40 Mg Vial IVP 12/27/24 20:59 40 mg BID PHILIPPE Administration Sennosides 1 tab 11/26/24 22:49 Senna Tablet PO 12/26/24 22:48 QDAY PRN constipation Protocol Plan 83 y/o female with Hx of smoking, asthma, HTN, and T2DM presents to ED c/o throat pain and difficulty swallowing for the past 3 days. She was found to have ELIZABETH, and was admitted for dysphagia/odynophagia. #Esophageal dysphagia Patient does not report trouble initiating swallowing. Endorses sensation of food and liquids being caught in her throat. Has a history of GERD and gastritis, and significant smoking hx EGD 2020: mild chronic gastritis Sudden onset with inability to swallow solids and liquids at onset Patient appeared to be able to tolerate po following dilation last night, but her dysphagia has returned this morning. Repeat imaging shows narrowing. Dr. De Dios will reevaluate the patient today. EGD 11/27: Benign appearing esophageal stenosis, dilated. Esophagitis. Biopsies were performed in lower and upper third of the esophagus as well as the gastric antrum and cardia. Gastritis with hemorrhage, characterized by erythema. CT scan of the soft tissue of the neck with IV contrast 11/27: No neck masses or pathological cervical lymphadenopathy. Videofluoroscopic swallow 11/28: Proximal esophagus shows significant narrowing incompletely visualized Plan: GI is consulted, recs appreciated. Speech therapy consulted, liquid diet until further GI recommendations Awaiting pathology results Protonix 40 mg IV BID #ELIZABETH (resolved) Creatinine 1.4, Cr/Cl 30.2 and eGFR 38 on admit; BUN/Cr was 23 indicating prerenal elizabeth in the setting of the patient not tolerating po for the past 4 days 11/28: Cr and eGFR are back at baseline Plan: Trend CMP #Electrolyte abnormalities K+ was 3.3 today, Phos 2.0 Repleted Plan: Trend CMP #Asthma Hx of asthma, RR wnl, Spo2 ranges have been in the low 90s overnight Plan: -Continued home Albuterol sulfate 2 puff Q6H prn -Duoneb Rt Q6HR PRN #HLD Home medication is atorvastatin 20 mg PO HS Plan: Resume once patient can tolerate po #Hypertension Patient home medication includes lisinopril 10mg po qd Plan: Resume once patient can tolerate po #Elevated RBC, Hgb, HCT (resolved) Most likely hemoconcentration due to volume depletion - patient not able to drink for 3 days. Volume repleted patient with LR Health Maintenance: Disposition: Med tele DVT Prophylaxis: Heparin Q12 GI Prophylaxis: Protonix 40mg IV BID Diet: Clear liquid diet CODE STATUS: Full Code Case and Plan discussed with my attending physician, Dr. Ferreira , and my senior resident, Dr. Patricia العراقي, [facility] [place] Provider Attestation/Addendum I have discussed and was present for the essential components of the history, physical examination, diagnosis, and treatment plan with the resident. I agree with the patient's care as documented by the resident and amended herein by me. Demar Ferreira DO. Although this document has been carefully reviewed, there may still be some phonetic and other typographical errors. These errors are purely grammatical due to imperfections in the software program and should not be construed in any way to compromise the substance of the patient's medical care during this visit. Patient seen and evaluated this AM. No acute events overnight, vital signs stable, patient afebrile, labs largely unremarkable. EGD performed yesterday significant for benign-appearing esophageal stenosis, esophagitis, gastritis with hemorrhage. Recommended to keep the patient on Protonix 40 mg IV every 12 hours and avoid NSAID use with the addition of a PUD diet. Unfortunately patient still having dysphagia this morning, barium swallow demonstrated a significant narrowing in the proximal esophagus. Speech working with the patient in hopes to find a diet that may suit her. Gastroenterology also consulted, appreciate recommendations. Will replete electrolytes as necessary and continue to monitor closely. I did inform the patient that we will wait for specialist recommendations, worst-case scenario she may need a PEG tube and they understood.
[2024-11-28] MEDS: MORPHINE SULF INJ 10 MG/ML VIAL IVP ×2 (16:44→22:47)
--- NOTE | 2024-11-28 21:57 | PC.NURSE ---
MD De Dios came and talked to the pt and daughter at bedside. ordered pt for pureed diet and thickened liquids. No further procedure at this moment.
--- NOTE | 2024-11-28 22:34 | PD.IMPROG ---
Documentation for date of: 11/28/24 Subjective Subjective Interval history: Videofluoroscopy showed proximal esophageal narrowing due to most likely esophageal spasm as the stricture was dilated yesterday with a 45 Pashto and a 54 Pashto savory dilator with guidewire guidance Speech evaluation the recommended pur?ed diet which patient does not want to eat Discussed options for placement of a PEG tube which she does not want and also referral to a tertiary center for further evaluation of oropharyngeal dysphagia Patient will think about it and let us know Exam Vital Signs Temp Pulse Resp BP Pulse Ox O2 Del Method O2 Flow Rate 97.4 F 63 19 159/75 H 94 L Room Air 2 11/28/24 20:00 11/28/24 20:00 11/28/24 20:00 11/28/24 20:00 11/28/24 20:00 11/28/24 20:00 11/27/24 19:50 Objective Labs 11/28/24 05:01 11/28/24 05:01 Labs: Laboratory Results - last 24 hr 11/28/24 05:01 WBC 10.0 RBC 4.47 Hgb 13.6 Hct 41.0 MCV 92 MCH 30.4 MCHC 33.2 RDW Std Deviation 46.3 Plt Count 142 Neut % (Auto) 66 Lymph % (Auto) 24 [place] % (Auto) 8 Eos % (Auto) 2 Baso % (Auto) 1 Neut # (Auto) 6.6 Lymph # (Auto) 2.4 [place] # (Auto) 0.8 Eos # (Auto) 0.2 Baso # (Auto) 0.1 Immature Gran # (Auto) 0.03 H Absolute Nucleated RBC 0.00 Immature Gran % 0 Nucleated RBC % 0 Sodium 144 Potassium 3.3 L D Chloride 110 H Carbon Dioxide 25.0 Anion Gap 9 BUN 19 Creatinine 0.9 Estim Creat Clear Calc 48.4 L eGFR > 60 BUN/Creatinine Ratio 21 H Glucose 96 Calculated Osmolality 289 Calcium 9.3 Corrected Calcium 9.6 Phosphorus 2.0 L Magnesium 1.7 Total Bilirubin 0.6 AST 25 ALT 9 L Alkaline Phosphatase 74 D Total Protein 6.0 Albumin 3.6 D Globulin 2.4 Albumin/Globulin Ratio 1.5 Impressions Impression: Oropharyngeal dysphagia most likely an esophageal motility disorder Plan As under HPI Assessment & Plan A&P Narrative Progressive dysphagia sudden onset with a dyne aphasia Plan Consent obtained for fiberoptic esophagogastroduodenoscopy with possible biopsy possible therapeutic intervention under intravenous moderate sedation Other medical problems include Essential hypertension Bronchial asthma/COPD Hyperlipidemia Thank you very much for the opportunity to participate in the care of this patient Time Spent With Patient Time: Total time spent is greater than 50% in coordination of care (as documented) at patient's floor/unit and/or counseling patient:
[2024-11-29] VITALS (18 sets, daily range): BP systolic 131–182; BP diastolic 56–95; PULSE 60–74; RESP 12–20; TEMP 36.2–36.7; O2SAT 94–98
[2024-11-29 06:22] LABS: Basophils # (Auto) 0.1 Thou/mm3 (0.0-0.2); Basophils % (Auto) 1 % (0-2.5); Eosinophils # (Auto) 0.2 Thou/mm3 (0.0-0.5); Eosinophils % (Auto) 2 % (0-10); Hematocrit 39.6 % (36.0-46.0); Hemoglobin 13.6 g/dL (12.0-16.0); Immature Granulocytes Auto 0.03 Thou/mm3 (0.00-0.00); Lymphocytes # (Auto) 2.1 Thou/mm3 (1.0-4.8); Lymphocytes % (Auto) 22 % (10-50); Mean Corpuscular HGB Conc 34.3 g/dl (31.0-37.0); Mean Corpuscular Hemoglobin 31.0 pg (25.0-35.0); Mean Corpuscular Volume 90 fL (80-100); Monocytes # (Auto) 0.7 Thou/mm3 (0.0-0.8); Monocytes % (Auto) 7 % (0-12); Neutrophils # (Auto) 6.5 Thou/mm3 (1.8-7.7); Neutrophils % (Auto) 68 % (37-80); Nucleated Red Blood Cell # 0.00 Thou/mm3 (0.00-0.00); Nucleated Red Blood Cell % 0 /100 WBC (0); Platelet Count 140 Thou/mm3 (140-440); RDW Standard Deviation 45.5 fL (36.4-46.3); Red Blood Count 4.39 Miln/mm3 (4.00-5.20); White Blood Count 9.5 Thou/mm3 (3.6-11.0)
[2024-11-29 06:58] LABS: Alanine Aminotransferase 10 U/L (10-49); Albumin, Serum 3.7 gm/dL (3.4-4.8); Albumin/Globulin Ratio 1.6 (1.2-2.2); Alkaline Phosphatase 74 U/L (46-116); Anion Gap 10 (7-16); Aspartate Amino Transferase 27 U/L (0-34); BUN/Creatinine Ratio 17 Ratio (12-20); Bilirubin,Total 0.6 mg/dL (0.3-1.2); Blood Urea Nitrogen 15 mg/dL (9-23); Calcium 9.3 mg/dL (8.3-10.6); Calcium (Corrected) 9.5 mg/dL (8.5-10.1); Carbon Dioxide 24.4 mMol/L (20.0-31.0); Chloride 112 mMol/L (98-107); Creatinine (Component) 0.9 mg/dL (0.6-1.3); Estimated Creatinine Clearance 48.4 mL/min (>60); Globulin 2.3 gm/dL (2.3-3.5); Glucose 78 mg/dL (74-106); Magnesium 1.7 mg/dL (1.6-2.6); Osmolality,Calculated 290 (275-295); Phosphorous 2.6 mg/dL (2.4-5.1); Potassium 3.7 mMol/L (3.4-5.1); Sodium 146 mMol/L (136-145); Total Protein 6.0 gm/dL (5.7-8.2); eGFR > 60 See Note
[2024-11-29] MEDS: MORPHINE SULF INJ 10 MG/ML VIAL IVP ×2 (09:55→16:21)
[2024-11-29] MEDS: HEPARIN SOD INJ 5000 UNIT/ML VIAL SC ×2 (09:56→22:25)
--- NOTE | 2024-11-29 10:40 | CHAP ---
Patient was visited by the Spiritual Care Volunteer who prayed for them. (Volunteer was in the hospital from 09:30-10:40)
--- NOTE | 2024-11-29 13:40 | ESPR_ITS ---
<Statement entered by Prudence Gomez MD - 11/29/24 15:00> I have reviewed the note and agree with the resident's assessment & plan with exceptions as below. I have personally reviewed labs, imaging, home meds/prior records, examined the patient, formulated and discussed management plan with the IM team. Pt examined at bedside. Pt continues to not tolerate diet at this time despite EGD w/diltation. Barium swallow reveals esophageal stenosis as well. Pt is agreeable to get PEG today by Dr. De Dios until outpatient referral for workup of oropharyngeal dysphagia. Will put patient NPO, continue bedside glucose q6h, start IV fluids. Repeat hematology and chemistryin AM. Prudence Gomez, PGY-2 Internal Medicine Documentation for date of: 11/29/24 Subjective Subjective Interval history: Patient seen and examined this morning. Patient states that she continues to have difficulty swallowing, and she was only able to eat a couple of bites of bread soaked in milk with the help of speech therapy. The patient also attempted blenderized diet with thin regular liquids at lunch and was only able to tolerate 7-8 small bites before she was unable to swallow. The patient is amenable to undergoing placement of a PEG tube, and outpatient referral to a tertiary care center as recommended by Dr. De Dios. She confirms having a bowel movement this morning, and denies chest pain, sob, abdominal pain, fevers, and chills. No acute events overnight. Exam Vital Signs Temp Pulse Resp BP Pulse Ox O2 Del Method O2 Flow Rate 97.1 F 60 12 131/65 H 94 L Room Air 2 11/29/24 08:00 11/29/24 12:55 11/29/24 12:55 11/29/24 08:00 11/29/24 12:55 11/29/24 08:00 11/27/24 19:50 Narrative Exam General: Patient is A&O X4, NAD HEENT: Normocephalic atraumatic, PERRL, EOMI, Cardio: RRR, S1,S2, no murmurs rubs or gallops, 2+ peripheral pulses, no lower extremity edema Pulm: Lungs clear to auscultation bilaterally. No wheezing, rhales or rhonchi noted. Abdominal:Bowel sounds present x4, abdomen soft, nontender with no rigidity or guarding MSK: 5/5 strength bilateral upper and lower extremity. Neuro: CN2-12 grossly intact, sensation intact bilateral upper and lower extremity Objective Labs 11/29/24 05:05 11/29/24 05:05 Labs: Laboratory Results - last 24 hr 11/29/24 05:05 WBC 9.5 RBC 4.39 Hgb 13.6 Hct 39.6 MCV 90 MCH 31.0 MCHC 34.3 RDW Std Deviation 45.5 Plt Count 140 Neut % (Auto) 68 Lymph % (Auto) 22 [place] % (Auto) 7 Eos % (Auto) 2 Baso % (Auto) 1 Neut # (Auto) 6.5 Lymph # (Auto) 2.1 [place] # (Auto) 0.7 Eos # (Auto) 0.2 Baso # (Auto) 0.1 Immature Gran # (Auto) 0.03 H Absolute Nucleated RBC 0.00 Immature Gran % 0 Nucleated RBC % 0 Sodium 146 H Potassium 3.7 Chloride 112 H Carbon Dioxide 24.4 Anion Gap 10 BUN 15 Creatinine 0.9 Estim Creat Clear Calc 48.4 L eGFR > 60 BUN/Creatinine Ratio 17 Glucose 78 Calculated Osmolality 290 Calcium 9.3 Corrected Calcium 9.5 Phosphorus 2.6 Magnesium 1.7 Total Bilirubin 0.6 AST 27 ALT 10 Alkaline Phosphatase 74 Total Protein 6.0 Albumin 3.7 Globulin 2.3 Albumin/Globulin Ratio 1.6 Quality Measures Quality Measures none Advance care planning discussed with:: patient Assessment & Plan Assessment Current Active Medications: Generic Name Dose Route Start Last Admin Trade Name Freq PRN Reason Stop Dose Admin Acetaminophen 650 mg 11/26/24 22:49 Acetaminophen 325 Mg Tablet PO 12/26/24 22:48 Q6H PRN PAIN SCALE 1-3 (mild Hydrocodone Bitart/Acetaminophen 1 tab 11/29/24 09:31 Hydrocodone/Apap 10/325 Tab PO 12/02/24 11:02 Q8HR PRN pain 4-6 or breakthrough pain Albuterol 2 puff 11/27/24 17:07 Albuterol Inh 8 Gm INH 12/27/24 17:06 Q6HRRT PRN SHORTNESS OF BREATH OR WHEEZE Protocol Albuterol/Ipratropium 3 ml 11/27/24 18:22 Albuterol/Ipratropium (Duoneb) Rt Hayley 3 Ml Nebu INH 12/27/24 18:59 Q6HRRT PRN wheezing Atorvastatin Calcium 20 mg 11/27/24 21:00 11/28/24 20:21 Atorvastatin Calcium 20 Mg Tablet PO 12/27/24 20:59 Not Given HS PHILIPPE Escitalopram Oxalate 10 mg 11/27/24 11:15 11/29/24 09:56 Escitalopram Oxalate 10 Mg Tablet PO 12/27/24 11:14 Not Given QDAY PHILIPPE Gabapentin 300 mg 11/27/24 11:15 11/29/24 09:56 Gabapentin 300 Mg Capsule PO 12/27/24 11:14 Not Given BID PHILIPPE Heparin Sodium (Porcine) 5,000 unit 11/27/24 09:00 11/29/24 09:56 Heparin Sod Inj 5000 Unit/Ml Vial SC 12/11/24 08:59 5,000 unit Q12HR PHILIPPE Administration Lisinopril 10 mg 11/28/24 09:00 11/29/24 09:56 Lisinopril 2.5 Mg Tablet PO 12/28/24 08:59 Not Given QDAY PHILIPPE Morphine Sulfate 1 mg 11/28/24 16:15 11/29/24 09:55 Morphine Sulf Inj 10 Mg/Ml Vial IVP 12/03/24 16:14 1 mg Q6HR PRN Administration Pain 7-10 Ondansetron HCl 4 mg 11/26/24 22:49 Ondansetron Inj 2 Mg/Ml Inj 2 Ml IVP 12/26/24 22:48 Q6H PRN NAUSEA OR VOMITING Protocol Pantoprazole Sodium 40 mg 11/27/24 21:00 11/29/24 09:55 Pantoprazole Inj 40 Mg Vial IVP 12/27/24 20:59 40 mg BID PHILIPPE Administration Sennosides 1 tab 11/26/24 22:49 Senna Tablet PO 12/26/24 22:48 QDAY PRN constipation Protocol Plan 83 y/o female with Hx of smoking, asthma, HTN, and T2DM presents to ED c/o throat pain and difficulty swallowing for the past 3 days. She was found to have ELIZABETH, and was admitted for dysphagia/odynophagia. #Dysphagia Endorses sudden onset of symptoms, sensation of both food and liquids being caught in her throat at onset. 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 Esophagitis. Biopsies were performed in lower and upper third of the esophagus as well as the gastric antrum and cardia. Gastritis with hemorrhage, characterized by erythema. CT scan of the soft tissue of the neck with IV contrast 11/27: No neck masses or pathological cervical lymphadenopathy. Videofluoroscopic swallow 11/28: Proximal esophagus shows significant narrowing incompletely visualized Plan: GI is consulted, recs appreciated. Speech therapy consulted Patient is amenable to PEG tube placement and referral to a tertiary center per GI recommendation Awaiting pathology results Protonix 40 mg IV BID D5 05/09 NS 75mls/hr #ELIZABETH (resolved) Creatinine 1.4, Cr/Cl 30.2 and eGFR 38 on admit; BUN/Cr was 23 indicating prerenal elizabeth in the setting of the patient not tolerating po for the past 4 days 11/28: Cr and eGFR are back at baseline Plan: Trend CMP #Electrolyte abnormalities K+ was 3.3 today, Phos 2.0 Repleted Plan: Trend CMP #Asthma Hx of asthma, RR wnl, Spo2 ranges have been in the low 90s overnight Plan: -Continued home Albuterol sulfate 2 puff Q6H prn -Duoneb Rt Q6HR PRN #HLD Home medication is atorvastatin 20 mg PO HS Plan: Resume once patient can tolerate po #Hypertension Patient home medication includes lisinopril 10mg po qd Plan: Resume once patient can tolerate po #Elevated RBC, Hgb, HCT (resolved) Most likely hemoconcentration due to volume depletion - patient not able to drink for 3 days. Volume repleted patient with LR Health Maintenance: Disposition: Med tele DVT Prophylaxis: Heparin Q12 GI Prophylaxis: Protonix 40mg IV BID Diet: NPO for PEG placement CODE STATUS: Full Code Case and Plan discussed with my attending physician, Dr. Ferreira , and my senior resident, Dr. Patricia العراقي, [facility] Attending Provider Attestation/Addendum I have discussed and was present for the essential components of the history, physical examination, diagnosis, and treatment plan with the resident. I agree with the patient's care as documented by the resident and amended herein by me. Demar Ferreira DO. Although this document has been carefully reviewed, there may still be some phonetic and other typographical errors. These errors are purely grammatical due to imperfections in the software program and should not be construed in any way to compromise the substance of the patient's medical care during this visit. Patient seen and evaluated this AM. No acute events overnight, vital signs stable, patient afebrile. Patient today states she is amenable to PEG tube placement as she was not able to tolerate a pur?ed with thickened liquid diet. Upon discharge she will follow-up with gastroenterology and need referral to a tertiary center for her oral pharyngeal dysphagia. Patient's family was at bedside, everything was explained, they are on board with the plan.
--- NOTE | 2024-11-29 14:43 | PC.SS ---
Rounding note: Pt. will be getting [employer], possible d/c for tomorrow.
--- NOTE | 2024-11-29 15:38 | PC.SS ---
Addendum entered by IMELDA Greenwood 11/29/24 15:51: ACTIVITIES COORDINATOR informed doctor that family would like home health, doctor confirmed. Addendum entered by IMELDA Greenwood 11/29/24 15:47: Pt. stated that if [facility] Hall does not answer phone alternate contact is Bette (daughter) [phone]. Original Note: SS update: ACTIVITIES COORDINATOR spoke to bulk coolers installer, Nishi, who informed that patient would like home health. ACTIVITIES COORDINATOR spoke to patient to confirm HH agency, pt. did not have preferred agency. Pt. confirmed that carlo Joe ph:[phone] will be home to assist. Patients PCP is Jihan Bishop at [facility].
--- NOTE | 2024-11-29 15:39 | PC.DIETICIAN ---
Dietitian note:After peg is placed, recommend start Jevity 1.5 at 20ml/hr, increase by 10ml Q 8 hrs as tolerated to goal of 50ml/hr x24hrs via G-tube by pump. If no IVF give water flush 40ml/hr or per MD. Provides: 1200ml total vol, 1800kcal, 77g protein. *Consider home regimen: Jevity 1.5 240ml carton 5x/day via G tube by syringe to provide: 1200ml total vol, 1775kcal,76gprotein. Flush with 120ml before and after each feed. Thank you
[2024-11-29] MEDS: DEXTROSE 5%-0.45% NS 1,000 ML 75 ML IV (16:13)
[2024-11-29] MEDS: ceFAZolin/D5W 1 GM IVPB 1 GM/50 ML BAG IV (18:17)
--- NOTE | 2024-11-29 18:30 | PC.NURSE ---
Consent for PEG tube signed. Ancef given, see MAR.
[2024-11-30] VITALS (15 sets, daily range): BP systolic 91–160; BP diastolic 55–74; PULSE 39–70; RESP 12–19; TEMP 36.1–36.6; O2SAT 92–96
[2024-11-30] MEDS: MORPHINE SULF INJ 10 MG/ML VIAL IVP ×2 (04:54→15:29)
[2024-11-30 05:57] LABS: Basophils # (Auto) 0.1 Thou/mm3 (0.0-0.2); Basophils % (Auto) 1 % (0-2.5); Eosinophils # (Auto) 0.1 Thou/mm3 (0.0-0.5); Eosinophils % (Auto) 1 % (0-10); Hematocrit 40.0 % (36.0-46.0); Hemoglobin 13.1 g/dL (12.0-16.0); Immature Granulocytes Auto 0.03 Thou/mm3 (0.00-0.00); Lymphocytes # (Auto) 1.9 Thou/mm3 (1.0-4.8); Lymphocytes % (Auto) 17 % (10-50); Mean Corpuscular HGB Conc 32.8 g/dl (31.0-37.0); Mean Corpuscular Hemoglobin 30.1 pg (25.0-35.0); Mean Corpuscular Volume 92 fL (80-100); Monocytes # (Auto) 0.5 Thou/mm3 (0.0-0.8); Monocytes % (Auto) 5 % (0-12); Neutrophils # (Auto) 8.3 Thou/mm3 (1.8-7.7); Neutrophils % (Auto) 77 % (37-80); Nucleated Red Blood Cell # 0.00 Thou/mm3 (0.00-0.00); Nucleated Red Blood Cell % 0 /100 WBC (0); Platelet Count 125 Thou/mm3 (140-440); RDW Standard Deviation 46.3 fL (36.4-46.3); Red Blood Count 4.35 Miln/mm3 (4.00-5.20); White Blood Count 10.8 Thou/mm3 (3.6-11.0)
[2024-11-30 06:30] LABS: Alanine Aminotransferase 11 U/L (10-49); Albumin, Serum 3.7 gm/dL (3.4-4.8); Albumin/Globulin Ratio 1.5 (1.2-2.2); Alkaline Phosphatase 76 U/L (46-116); Anion Gap 10 (7-16); Aspartate Amino Transferase 24 U/L (0-34); BUN/Creatinine Ratio 16 Ratio (12-20); Bilirubin,Total 0.7 mg/dL (0.3-1.2); Blood Urea Nitrogen 16 mg/dL (9-23); Calcium 9.3 mg/dL (8.3-10.6); Calcium (Corrected) 9.5 mg/dL (8.5-10.1); Carbon Dioxide 23.6 mMol/L (20.0-31.0); Chloride 108 mMol/L (98-107); Creatinine (Component) 1.0 mg/dL (0.6-1.3); Estimated Creatinine Clearance 43.6 mL/min (>60); Globulin 2.4 gm/dL (2.3-3.5); Glucose 105 mg/dL (74-106); Magnesium 2.0 mg/dL (1.6-2.6); Osmolality,Calculated 284 (275-295); Phosphorous 2.6 mg/dL (2.4-5.1); Potassium 3.4 mMol/L (3.4-5.1); Sodium 142 mMol/L (136-145); Total Protein 6.1 gm/dL (5.7-8.2); eGFR 57 See Note
[2024-11-30] MEDS: GABAPENTIN 300 MG CAPSULE GT ×2 (08:37→21:36)
[2024-11-30] MEDS: ESCITALOPRAM OXALATE 10 MG TABLET GT (08:37)
--- NOTE | 2024-11-30 10:07 | PD.RESDS ---
Planned Discharge Date 11/30/24 DS: Providers Provider Date of admission: 11/26/24 22:47 Primary care physician: Jihan Bishop PA-C Admitting Provider: Fred Ceja MD Attending Provider on Admission: Fred Ceja MD Consults: 11/26/24 22:13 Consult to Gastroenterology Stat Comment: Consulting Provider: Adi De Dios 11/27/24 00:14 Referral Registered Dietitian Routine Comment: 11/27/24 11:02 Referral Speech Therapy Routine Comment: 11/29/24 20:32 Referral Registered Dietitian Routine Comment: FOR NUTRITION/PEG FEEDINGS Attending Provider on DC: RESIDENT Deonna Discharging Provider: RESIDENT Deonna Hospital Course Hospital Course Hospital course: Patient seen and examined this morning. Patient states that she continues to have difficulty swallowing, and she was only able to eat a couple of bites of bread soaked in milk with the help of speech therapy. The patient also attempted blenderized diet with thin regular liquids at lunch and was only able to tolerate 7-8 small bites before she was unable to swallow. The patient is amenable to undergoing placement of a PEG tube, and outpatient referral to a tertiary care center as recommended by Dr. De Dios. She confirms having a bowel movement this morning, and denies chest pain, sob, abdominal pain, fevers, and chills. No acute events overnight. Time Spent with Patient Time attestation: Total time spent providing and/or coordinating discharge services: Home Health Home Health Referral Orders: 11/29/24 15:45 Home Health Referral Routine Reason For Exam: debility Home-Bound The patient must either because of illness or injury, need the aid of supportive devices such as crutches, canes, wheelchairs, and walkers; the use of special transportation; or the assistance of another person in order to leave their place of residence; OR have a condition such that leaving his or her home is medically contraindicated. In addition, the patient also meets the following criteria: patient is normally unable to leave the home and leaving home requires considerable taxing effort. Addendum to Home Health Certification Practitioner's Certification: I certify that the patient has been under my care in the hospital and the care of attending physician (see below). We had a ktvo-zn-dame encounter on (see date below). My clinical findings indicate that the patient is home bound per the above criteria and the Home Health Services noted in these orders are medically necessary. The primary reason for the erhe-wa-scfv encounter is related to the fact that the patient requires home health services. Date Certifying Hipg-fs-Obna Physician Encounter: 11/26/24 Physician's Name who will Assume Oversight for Services: Jihan Bishop Physician's Phone No.who will Assume Oversight for Service: CONVERTIBLE POWER SHOVEL OPERATOR - Community Resources: No PT to Evaluate: Yes PT to evaluate and provide a treatmnet plan to increase patient's mobility and strength. Wound Care: No IV Therapy: No Discontinue PICC Line Once Treatment Complete: No RN Safety Evaluation: Yes RN to evaluate and create a plan of care that will produce positive outcomes. Palliative Treatment: No Palliative treatment and evaluate the need for hospice. Home Health Aide - Personal Care: No Home Health Aide to assist with any ADL's. Exam Vital Signs Temp Pulse Resp BP Pulse Ox O2 Del Method O2 Flow Rate 97.1 F 56 L 14 128/55 L 92 L Room Air 3 11/30/24 07:51 11/30/24 09:54 11/30/24 09:54 11/30/24 08:36 11/30/24 09:54 11/30/24 07:51 11/30/24 00:00 Discharge Plan Plan Care Plan Goals: Follow-up with PCP within 1-2 weeks of discharge. [] Continue taking medications as prescribed below. Return to Emergency Room if symptoms persist, worsen, or new symptoms develop. Tube Feed instructions: Jevity 1.5 240ml carton 5x/day via G tube by syringe to provide: 1200ml total vol, 1775kcal,76gprotein. Flush with 120ml before and after each feed. Prescriptions/Referrals Prescriptions/Med Rec: No Action lorazepam 0.5 mg tablet 0.5 mg PO QDAY lisinopril 10 mg tablet 10 mg PO QDAY Patient Comments: TAKE ONE TABLET BY MOUTH EVERY DAY FOR BLOOD PRESSURE lovastatin 20 mg tablet 20 mg PO HS Patient Comments: TAKE ONE TABLET BY MOUTH EVERY DAY AFTER MEALS AT BED TIME albuterol sulfate 90 mcg/actuation HFA aerosol inhaler 2 puff INHALATION Q6H PRN (Reason: Wheezing) Patient Comments: INHALE TWO PUFFS BY MOUTH EVERY 6 TO 8 HOURS NEEDED hydrocodone-acetaminophen 10-325 mg tablet 1 tab PO TID PRN (Reason: breakthrough pain) Qty: 0 0RF escitalopram oxalate 10 mg tablet 10 mg PO QDAY Patient Comments: TAKE ONE TABLET BY MOUTH EVERY DAY ibuprofen 600 mg tablet 600 mg PO Q6H PRN (Reason: pain) Patient Comments: TAKE ONE TABLET BY MOUTH EVERY 6 TO 8 HOURS WITH FOOD OR MILK NEEDED FOR PAIN atorvastatin 20 mg tablet 20 mg PO HS Patient Comments: TAKE ONE TABLET BY MOUTH AT BEDTIME FOR CHOLESTEROL Referrals: Jihan Bishop PA-C [Primary Care Provider] - Patient/Caregiver Discharge Instructions Print Language: Bengali
[2024-11-30] MEDS: ONDANSETRON INJ 2 MG/ML INJ 2 ML 4 MG IVP ×2 (10:27→20:11)
--- NOTE | 2024-11-30 11:16 | PD.RESPRO ---
Documentation for date of: 11/30/24 Subjective Subjective Interval history: Patient seen at bedside. No acute overnight events. Patient had PEG tube placed last night. This morning however patient felt nauseous with tube feeds, had a vasovagal response with decreased heart rate. Antinausea medication given. Patient denies of any other complaints at this time. Exam Vital Signs Temp Pulse Resp BP Pulse Ox O2 Del Method O2 Flow Rate 97.1 F 61 14 128/55 L 92 L Room Air 3 11/30/24 07:51 11/30/24 10:39 11/30/24 09:54 11/30/24 08:36 11/30/24 09:54 11/30/24 07:51 11/30/24 00:00 Narrative Exam General: Patient is A&O X4, NAD HEENT: Normocephalic atraumatic, PERRL, EOMI, Cardio: RRR, S1,S2, no murmurs rubs or gallops, 2+ peripheral pulses, no lower extremity edema Pulm: Lungs clear to auscultation bilaterally. No wheezing, rhales or rhonchi noted. Abdominal:Bowel sounds present x4, abdomen soft, nontender with no rigidity or guarding MSK: 5/5 strength bilateral upper and lower extremity. Neuro: CN2-12 grossly intact, sensation intact bilateral upper and lower extremity Objective Labs 11/30/24 05:04 11/30/24 05:04 Labs: Laboratory Results - last 24 hr 11/30/24 05:04 WBC 10.8 RBC 4.35 Hgb 13.1 Hct 40.0 MCV 92 MCH 30.1 MCHC 32.8 RDW Std Deviation 46.3 Plt Count 125 L Neut % (Auto) 77 Lymph % (Auto) 17 [place] % (Auto) 5 Eos % (Auto) 1 Baso % (Auto) 1 Neut # (Auto) 8.3 H Lymph # (Auto) 1.9 [place] # (Auto) 0.5 Eos # (Auto) 0.1 Baso # (Auto) 0.1 Immature Gran # (Auto) 0.03 H Absolute Nucleated RBC 0.00 Immature Gran % 0 Nucleated RBC % 0 Sodium 142 Potassium 3.4 Chloride 108 H Carbon Dioxide 23.6 Anion Gap 10 BUN 16 Creatinine 1.0 Estim Creat Clear Calc 43.6 L eGFR 57 L BUN/Creatinine Ratio 16 Glucose 105 Calculated Osmolality 284 Calcium 9.3 Corrected Calcium 9.5 Phosphorus 2.6 Magnesium 2.0 Total Bilirubin 0.7 AST 24 ALT 11 Alkaline Phosphatase 76 Total Protein 6.1 Albumin 3.7 Globulin 2.4 Albumin/Globulin Ratio 1.5 Quality Measures Quality Measures none Advance care planning discussed with:: patient Assessment & Plan Assessment Current Active Medications: Generic Name Dose Route Start Last Admin Trade Name Freq PRN Reason Stop Dose Admin Acetaminophen 650 mg 11/29/24 21:21 Acetaminophen Hayley 325 Mg/10 Ml Udc GT 12/29/24 21:20 Q6HR PRN Mild Pain 1-3 Or Fever > 101 Hydrocodone Bitart/Acetaminophen 1 tab 11/29/24 21:16 11/30/24 08:34 Hydrocodone/Apap 10/325 Tab GT 12/02/24 11:02 1 tab Q8HR PRN Administration pain 4-6 or breakthrough pain Albuterol 2 puff 11/27/24 17:07 Albuterol Inh 8 Gm INH 12/27/24 17:06 Q6HRRT PRN SHORTNESS OF BREATH OR WHEEZE Protocol Albuterol/Ipratropium 3 ml 11/27/24 18:22 Albuterol/Ipratropium (Duoneb) Rt Hayley 3 Ml Nebu INH 12/27/24 18:59 Q6HRRT PRN wheezing Atorvastatin Calcium 20 mg 11/29/24 21:15 Atorvastatin Calcium 20 Mg Tablet GT 12/27/24 20:59 HS PHILIPPE Escitalopram Oxalate 10 mg 11/29/24 21:16 11/30/24 08:37 Escitalopram Oxalate 10 Mg Tablet GT 12/27/24 11:14 10 mg QDAY PHILIPPE Administration Gabapentin 300 mg 11/29/24 21:16 11/30/24 08:37 Gabapentin 300 Mg Capsule GT 12/27/24 11:14 300 mg BID PHILIPPE Administration Heparin Sodium (Porcine) 5,000 unit 11/27/24 09:00 11/29/24 22:25 Heparin Sod Inj 5000 Unit/Ml Vial SC 12/11/24 08:59 5,000 unit Q12HR PHILIPPE Administration Lisinopril 10 mg 11/29/24 21:16 11/30/24 08:36 Lisinopril 2.5 Mg Tablet GT 12/28/24 08:59 10 mg QDAY PHILIPPE Administration Morphine Sulfate 1 mg 11/28/24 16:15 11/30/24 04:54 Morphine Sulf Inj 10 Mg/Ml Vial IVP 12/03/24 16:14 1 mg Q6HR PRN Administration Pain 7-10 Ondansetron HCl 4 mg 11/26/24 22:49 11/30/24 10:27 Ondansetron Inj 2 Mg/Ml Inj 2 Ml IVP 12/26/24 22:48 4 mg Q6H PRN Administration NAUSEA OR VOMITING Protocol Pantoprazole Sodium 40 mg 11/27/24 21:00 11/30/24 08:37 Pantoprazole Inj 40 Mg Vial IVP 12/27/24 20:59 40 mg BID PHILIPPE Administration Sennosides 1 tab 11/29/24 21:23 Senna Tablet GT 12/26/24 22:48 QDAY PRN constipation Protocol Plan 83 y/o female with Hx of smoking, asthma, HTN, and T2DM presents to ED c/o throat pain and difficulty swallowing for the past 3 days. She was found to have ELIZABETH, and was admitted for dysphagia/odynophagia. #Dysphagia Endorses sudden onset of symptoms, sensation of both food and liquids being caught in her throat at onset. 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 Esophagitis. Biopsies were performed in lower and upper third of the esophagus as well as the gastric antrum and cardia. Gastritis with hemorrhage, characterized by erythema. CT scan of the soft tissue of the neck with IV contrast 11/27: No neck masses or pathological cervical lymphadenopathy. Videofluoroscopic swallow 11/28: Proximal esophagus shows significant narrowing incompletely visualized Plan: GI is consulted, recs appreciated. PEG tube placed yesterday, needs training for bolus feeds Referral to a tertiary center per GI recommendation Awaiting pathology results Protonix 40 mg IV BID #Asthma Hx of asthma, RR wnl, Spo2 ranges have been in the low 90s overnight Plan: -Continued home Albuterol sulfate 2 puff Q6H prn -Duoneb Rt Q6HR PRN #HLD Home medication is atorvastatin 20 mg PO HS Plan: Resumed #Hypertension Patient home medication includes lisinopril 10mg po qd Plan: Resumed #ELIZABETH (resolved) Health Maintenance: DVT Prophylaxis: Heparin Q12 GI Prophylaxis: Protonix 40mg IV BID Diet: Tube feeds, jevity 1.5 CODE STATUS: Full Code Case discussed with my attending Dr. Hanna Vanegas MD PGY-1 Attending Provider Attestation/Addendum I have discussed and was present for the essential components of the history, physical examination, diagnosis, and treatment plan with the resident. I agree with the patient's care as documented by the resident and amended herein by me. Demar Ferreira DO. Although this document has been carefully reviewed, there may still be some phonetic and other typographical errors. These errors are purely grammatical due to imperfections in the software program and should not be construed in any way to compromise the substance of the patient's medical care during this visit. Patient seen and evaluated this AM. No acute events overnight, patient started on tube feeds today as her PEG tube was placed without issue. During her tube feeds today, the patient did become nauseous and she did become bradycardic, likely vasovagal, she was given Zofran with almost immediate improvement in her heart rate. Will likely keep her 1 more day to make sure she can tolerate tube feeds without further issue, likely discharge home in a day or so. Will also need follow-up with gastroenterology for referral to tertiary center for further evaluation workup of her esophageal stenosis.
--- NOTE | 2024-11-30 18:32 | ESPR_ITS ---
Documentation for date of: 11/30/24 Subjective Subjective Interval history: Patient evaluated some nausea this morning with the enteral feeding that is not unusual Exam Vital Signs Temp Pulse Resp BP Pulse Ox O2 Del Method O2 Flow Rate 97.8 F 60 14 119/74 93 L Room Air 3 11/30/24 16:00 11/30/24 16:00 11/30/24 16:00 11/30/24 16:00 11/30/24 16:00 11/30/24 16:00 11/30/24 00:00 Objective Labs 11/30/24 05:04 11/30/24 05:04 Labs: Laboratory Results - last 24 hr 11/30/24 05:04 WBC 10.8 RBC 4.35 Hgb 13.1 Hct 40.0 MCV 92 MCH 30.1 MCHC 32.8 RDW Std Deviation 46.3 Plt Count 125 L Neut % (Auto) 77 Lymph % (Auto) 17 [place] % (Auto) 5 Eos % (Auto) 1 Baso % (Auto) 1 Neut # (Auto) 8.3 H Lymph # (Auto) 1.9 [place] # (Auto) 0.5 Eos # (Auto) 0.1 Baso # (Auto) 0.1 Immature Gran # (Auto) 0.03 H Absolute Nucleated RBC 0.00 Immature Gran % 0 Nucleated RBC % 0 Sodium 142 Potassium 3.4 Chloride 108 H Carbon Dioxide 23.6 Anion Gap 10 BUN 16 Creatinine 1.0 Estim Creat Clear Calc 43.6 L eGFR 57 L BUN/Creatinine Ratio 16 Glucose 105 Calculated Osmolality 284 Calcium 9.3 Corrected Calcium 9.5 Phosphorus 2.6 Magnesium 2.0 Total Bilirubin 0.7 AST 24 ALT 11 Alkaline Phosphatase 76 Total Protein 6.1 Albumin 3.7 Globulin 2.4 Albumin/Globulin Ratio 1.5 Impressions Impression: Failure to thrive Dysphagia Status post placement of a PEG tube continue enteral feeding as tolerated Assessment & Plan A&P Narrative Progressive dysphagia sudden onset with a dyne aphasia Plan Consent obtained for fiberoptic esophagogastroduodenoscopy with possible biopsy possible therapeutic intervention under intravenous moderate sedation Other medical problems include Essential hypertension Bronchial asthma/COPD Hyperlipidemia Thank you very much for the opportunity to participate in the care of this patient Time Spent With Patient Time: Total time spent is greater than 50% in coordination of care (as documented) at patient's floor/unit and/or counseling patient:
[2024-11-30] MEDS: ATORVASTATIN CALCIUM 20 MG TABLET GT (21:36)
[2024-12-01] VITALS: PULSE 54
[2024-12-01 03:49] VITALS: BP 100/56; PULSE 62; RESP 15; TEMP 36.5; O2SAT 92
[2024-12-01 04:00] VITALS: PULSE 65
[2024-12-01 05:56] LABS: Basophils # (Auto) 0.0 Thou/mm3 (0.0-0.2); Basophils % (Auto) 0 % (0-2.5); Eosinophils # (Auto) 0.1 Thou/mm3 (0.0-0.5); Eosinophils % (Auto) 1 % (0-10); Hematocrit 38.7 % (36.0-46.0); Hemoglobin 12.8 g/dL (12.0-16.0); Immature Granulocytes Auto 0.04 Thou/mm3 (0.00-0.00); Lymphocytes # (Auto) 1.7 Thou/mm3 (1.0-4.8); Lymphocytes % (Auto) 18 % (10-50); Mean Corpuscular HGB Conc 33.1 g/dl (31.0-37.0); Mean Corpuscular Hemoglobin 30.4 pg (25.0-35.0); Mean Corpuscular Volume 92 fL (80-100); Monocytes # (Auto) 0.6 Thou/mm3 (0.0-0.8); Monocytes % (Auto) 7 % (0-12); Neutrophils # (Auto) 6.8 Thou/mm3 (1.8-7.7); Neutrophils % (Auto) 73 % (37-80); Nucleated Red Blood Cell # 0.00 Thou/mm3 (0.00-0.00); Nucleated Red Blood Cell % 0 /100 WBC (0); Platelet Count 120 Thou/mm3 (140-440); RDW Standard Deviation 46.6 fL (36.4-46.3); Red Blood Count 4.21 Miln/mm3 (4.00-5.20); White Blood Count 9.4 Thou/mm3 (3.6-11.0)
[2024-12-01 06:25] LABS: Alanine Aminotransferase 13 U/L (10-49); Albumin, Serum 3.5 gm/dL (3.4-4.8); Albumin/Globulin Ratio 1.5 (1.2-2.2); Alkaline Phosphatase 79 U/L (46-116); Anion Gap 8 (7-16); Aspartate Amino Transferase 23 U/L (0-34); BUN/Creatinine Ratio 13 Ratio (12-20); Bilirubin,Total 0.5 mg/dL (0.3-1.2); Blood Urea Nitrogen 13 mg/dL (9-23); Calcium 9.5 mg/dL (8.3-10.6); Calcium (Corrected) 9.9 mg/dL (8.5-10.1); Carbon Dioxide 26.0 mMol/L (20.0-31.0); Chloride 107 mMol/L (98-107); Creatinine (Component) 1.0 mg/dL (0.6-1.3); Estimated Creatinine Clearance 43.6 mL/min (>60); Globulin 2.4 gm/dL (2.3-3.5); Glucose 110 mg/dL (74-106); Magnesium 1.7 mg/dL (1.6-2.6); Osmolality,Calculated 282 (275-295); Phosphorous 2.5 mg/dL (2.4-5.1); Potassium 3.4 mMol/L (3.4-5.1); Sodium 141 mMol/L (136-145); Total Protein 5.9 gm/dL (5.7-8.2); eGFR 57 See Note
[2024-12-01] MEDS: MORPHINE SULF INJ 10 MG/ML VIAL IVP (07:23)
[2024-12-01 08:00] VITALS: BP 119/55; PULSE 67; PULSE 75; RESP 17; TEMP 36.3; O2SAT 94
[2024-12-01 09:19] VITALS: BP 119/55; PULSE 67
[2024-12-01] MEDS: ESCITALOPRAM OXALATE 10 MG TABLET GT (09:19)
[2024-12-01] MEDS: GABAPENTIN 300 MG CAPSULE GT (09:20)
--- NOTE | 2024-12-01 09:28 | ESDS_ITS ---
Planned Discharge Date 12/01/24 DS: Providers Provider Date of admission: 11/26/24 22:47 Primary care physician: Jihan Bishop PA-C Admitting Provider: Fred Ceja MD Attending Provider on Admission: Fred Ceja MD Consults: 11/26/24 22:13 Consult to Gastroenterology Stat Comment: Consulting Provider: Adi De Dios 11/27/24 00:14 Referral Registered Dietitian Routine Comment: 11/27/24 11:02 Referral Speech Therapy Routine Comment: 11/29/24 20:32 Referral Registered Dietitian Routine Comment: FOR NUTRITION/PEG FEEDINGS Attending Provider on DC: Miguelito Ferreira DO Discharging Provider: Miguelito Ferreira DO DS: Diagnosis Problem List Completed Was Problem List Reviewed/Reconciled?: Yes Hospital Course Hospital Course Hospital course: 83 y/o female with Hx of smoking, asthma, HTN, and T2DM presents to ED c/o throat pain and difficulty swallowing for 3 days. Patient was admitted for workup of dysphagia/odynophagia. ED course: Initial vitals include temperature 99.4, heart rate 102, respiratory rate 18, blood pressure 109/69, O2 sat 92% on room air. Chest xray showed COPD, moderate hyperexpansion. No pneumonia or pulmonary edema. Urinalysis showed elevated RBCs +1 protein. Labs revealed elevated WBC 12.7, RBC 5.6, Hgb 17.1, hct 49.5, and Calcium 10.6 with decreased CO2 18.2. Patient admitted to the hospital for esophageal dysphagia investigation with upper endoscopy by gastroenterology. Hospital course: Videofluoroscopic swallow study revealed proximal esophageal narrowing, which was dilated, with an EGD showing benign stenosis, esophagitis, and gastritis, biopies taken. Speech therapy noted cricopharyngeal dysfunction, and an esophageal motility disorder was suspected. The ELIZABETH, attributed to pre-renal causes from poor oral intake, resolved rapidly within one day of admission. Given the persistent dysphagia, the patient was agreeable to PEG tube placement. At time of discharge patient is stable. Patient and the family has been trained of how to use the feeding tube. Patient to see gastroenterology, Dr. De Dios within 2 weeks, who will conduct specialist referral for oropharyngeal d ysphagia. Consults: ? Gastroenterology Discharge instructions: * Follow-up with primary care provider within 1-2 weeks of discharge. * Follow-up with GI within 1-2 weeks of discharge. * Recommended specialist referral for oropharyngeal dysphagia. * Continue tube feed and free water flushes using instruction below. * Continue using PROTONIX 40 mg daily for acid reflex (NEW). * Continue using ZOFRAN 4mg solution thru PEG tube up to 3 times daily as needed for nausea. * Continue taking medications as prescribed below. * Return to Emergency Room if symptoms persist, worsen, or new symptoms develop. Tube Feed instructions: * Jevity 1.5 240ml carton 5x/day via G tube by syringe to provide: 1200ml total vol, 1775kcal,76gprotein. * Water flush with 120ml before and after each feed. Admission diagnoses: #Dysphagia #Asthma #HLD #Hypertension #ELIZABETH (resolved) Case discussed with my attending Dr. Hanna Vanegas MD PGY-1 Time Spent with Patient Time attestation: Total time spent providing and/or coordinating discharge services: Time spent: Greater than 30 minutes Home Health Home Health Referral Orders: 11/29/24 15:45 Home Health Referral Routine Reason For Exam: debility Home-Bound The patient must either because of illness or injury, need the aid of supportive devices such as crutches, canes, wheelchairs, and walkers; the use of special transportation; or the assistance of another person in order to leave their place of residence; OR have a condition such that leaving his or her home is medically contraindicated. In addition, the patient also meets the following criteria: patient is normally unable to leave the home and leaving home requires considerable taxing effort. Addendum to Home Health Certification Practitioner's Certification: I certify that the patient has been under my care in the hospital and the care of attending physician (see below). We had a gjbw-ng-gwet encounter on (see date below). My clinical findings indicate that the patient is home bound per the above criteria and the Home Health Services noted in these orders are medically necessary. The primary reason for the jpsy-ig-uoas encounter is related to the fact that the patient requires home health services. Date Certifying Zjad-te-Buav Physician Encounter: 11/26/24 Physician's Name who will Assume Oversight for Services: Jihan Bishop Physician's Phone No.who will Assume Oversight for Service: CUMULATIVE EFFECTS ANALYST - Community Resources: No PT to Evaluate: Yes PT to evaluate and provide a treatmnet plan to increase patient's mobility and strength. Wound Care: No IV Therapy: No Discontinue PICC Line Once Treatment Complete: No RN Safety Evaluation: Yes RN to evaluate and create a plan of care that will produce positive outcomes. Palliative Treatment: No Palliative treatment and evaluate the need for hospice. Home Health Aide - Personal Care: No Home Health Aide to assist with any ADL's. Exam Vital Signs Temp Pulse Resp BP Pulse Ox O2 Del Method O2 Flow Rate 97.4 F 67 17 119/55 L 94 L Room Air 3 12/01/24 08:00 12/01/24 09:19 12/01/24 08:00 12/01/24 09:19 12/01/24 08:00 12/01/24 08:00 11/30/24 00:00 Narrative Exam General: Patient is A&O X4, NAD HEENT: Normocephalic atraumatic, PERRL, EOMI, Cardio: RRR, S1,S2, no murmurs rubs or gallops, 2+ peripheral pulses, no lower extremity edema Pulm: Lungs clear to auscultation bilaterally. No wheezing, rhales or rhonchi noted. Abdominal:Bowel sounds present x4, abdomen soft, nontender with no rigidity or guarding, PEG tube site clear MSK: 5/5 strength bilateral upper and lower extremity. Neuro: CN2-12 grossly intact, sensation intact bilateral upper and lower extremity Discharge Plan Plan Patient Disposition: HOME (Self Care) Patient condition on transfer: Stable Care Plan Goals: * Follow-up with primary care provider within 1-2 weeks of discharge. * Follow-up with GI within 1-2 weeks of discharge. * Recommended specialist referral for oropharyngeal dysphagia. * Continue tube feed and free water flushes using instruction below. * Continue using PROTONIX 40 mg daily for acid reflex (NEW). * Continue using ZOFRAN 4mg solution thru PEG tube up to 3 times daily as needed for nausea. * Continue taking medications as prescribed below. * Return to Emergency Room if symptoms persist, worsen, or new symptoms develop. Tube Feed instructions: * Jevity 1.5 240ml carton 5x/day via G tube by syringe to provide: 1200ml total vol, 1775kcal,76gprotein. * Water flush with 120ml before and after each feed. Prescriptions/Referrals Prescriptions/Med Rec: New pantoprazole [Protonix] 40 mg tablet,delayed release (DR/EC) 40 mg PO QDAY Qty: 30 0RF Jevity 1.5 Clint 0.06 gram-1.5 kcal/mL liquid 1 ea feeding tube 5 TIMES DAILY Qty: 5688 0RF Rx Instructions: 240 mL 5 times daily ondansetron HCl 4 mg/5 mL solution 4 mg feeding tube Q8H PRN (Reason: nausea and vomiting) Qty: 100 0RF Continued lorazepam 0.5 mg tablet 0.5 mg PO QDAY lisinopril 10 mg tablet 10 mg PO QDAY Patient Comments: TAKE ONE TABLET BY MOUTH EVERY DAY FOR BLOOD PRESSURE albuterol sulfate 90 mcg/actuation HFA aerosol inhaler 2 puff INHALATION Q6H PRN (Reason: Wheezing) Patient Comments: INHALE TWO PUFFS BY MOUTH EVERY 6 TO 8 HOURS NEEDED hydrocodone-acetaminophen 10-325 mg tablet 1 tab PO TID PRN (Reason: breakthrough pain) Qty: 0 0RF escitalopram oxalate 10 mg tablet 10 mg PO QDAY Patient Comments: TAKE ONE TABLET BY MOUTH EVERY DAY ibuprofen 600 mg tablet 600 mg PO Q6H PRN (Reason: pain) Patient Comments: TAKE ONE TABLET BY MOUTH EVERY 6 TO 8 HOURS WITH FOOD OR MILK NEEDED FOR PAIN atorvastatin 20 mg tablet 20 mg PO HS Patient Comments: TAKE ONE TABLET BY MOUTH AT BEDTIME FOR CHOLESTEROL Discontinued lovastatin 20 mg tablet 20 mg PO HS Patient Comments: TAKE ONE TABLET BY MOUTH EVERY DAY AFTER MEALS AT BED TIME Referrals: Jihan Bishop PA-C [Primary Care Provider] - Patient/Caregiver Discharge Instructions Education Materials: Gastrostomy Feeding Tube Care Flushing, Bolus Tube Feeding, Understanding PEG Tube Feeding Print Language: Togolese Stand Alone Forms: [employer] Award Info., Patient Portal Info Letter Discharge Order Discharge Orders: Discharge (Routine); Ordered 12/01/24 Ordered By: Michael Arroyo Quality Discharge Quality Measures VTE prophylaxis Attestestation Attestation I have discussed and was present for the essential components of the discharge history, physical examination, diagnosis, and discharge treatment plan with the resident. I agree with the patient's discharge care as documented by the resident and amended herein by me. Demar Ferreira DO. The patient understood all discharge instructions, all questions were answered satisfactorily. The patient was instructed to return to the Emergency Department is symptoms worsened or persisted. Tube feeds prior to discharge were going well without any issue. The patient and her family was trained on how to perform tube feeds, cleaning and medication administration via the tube. Patient will need follow-up with Dr. De Dios who will then give her referral for tertiary center for her esophageal stenosis and dysphagia. All questions were answered satisfactorily prior to discharge. Patient was stable, afebrile and tolerating her tube feeds prior to discharge. Although this document has been carefully reviewed, there may still be some phonetic and other typographical errors. These errors are purely grammatical due to imperfections in the software program and should not be construed in any way to compromise the substance of the patient's medical care during this visit.
[2024-12-01 12:00] VITALS: BP 130/69; PULSE 65; PULSE 66; RESP 18; TEMP 36.4; O2SAT 93
--- NOTE | 2024-12-02 07:40 | PC.CC ---
Addendum entered by Rosa Garcia RN 12/02/24 10:34: [facility] accepted and booked, soc 12/04 Original Note: HH ref sent to [facility], pt belongs to [facility]. Jeaneth will need to respond first. waiting for response
== END 2024-12-01 13:25 | disposition home or self-care (01) | DRG 391 ==
LOC: SERX 21:53 → SERHOLD 23:01 → S3SX 23:49
PROVIDERS: Nurse Practitioner Primary Care; Specialist; Admitting Provider Student in an Organized Health Care Education/Training Program; Emergency Provider Emergency Medicine; PCP Physician Assistant; Visit Provider Student in an Organized Health Care Education/Training Program
PROC: (CPT 43239; principal; 2024-11-27 21:15)
PROC: 0DH63UZ Insertion of Feeding Device into Stomach, Percutaneous Approach (ICD-10-PCS; CPT 43246; principal; 2024-11-29 20:00)
DX: K22.2 Esophageal obstruction (principal); K29.51 Unspecified chronic gastritis with bleeding; N17.9 Acute kidney failure, unspecified; R47.01 Aphasia; R13.14 Dysphagia, pharyngoesophageal phase; I10 Essential (primary) hypertension; K21.00 Gastro-esophageal reflux disease with esophagitis, without bleeding; F17.210 Nicotine dependence, cigarettes, uncomplicated; Z90.49 Acquired absence of other specified parts of digestive tract; J44.9 Chronic obstructive pulmonary disease, unspecified; D72.829 Elevated white blood cell count, unspecified; Z88.5 Allergy status to narcotic agent; F17.200 Nicotine dependence, unspecified, uncomplicated; E11.9 Type 2 diabetes mellitus without complications; E78.5 Hyperlipidemia, unspecified; G25.81 Restless legs syndrome; J44.89 Other specified chronic obstructive pulmonary disease; K20.90 Esophagitis, unspecified without bleeding; K22.4 Dyskinesia of esophagus; R62.7 Adult failure to thrive; Z79.899 Other long term (current) drug therapy
CPT/HCPCS: 36415; 70491; 71046; 74230; 80053; 80069; 81001; 82010; 83605; 83735; 83880; 84100; 84484; 85025; 85610; 85730; 87400; 87651; 87811; 92526; 92610; 93005; 93225; 96360; 99284; A4649; A9270; C1769; J0689; J1200; J1644; J2250; J2270; J2405; J2470; J3010; J7030; J7042; J7120; J7999; Q9967

== ENCOUNTER 2025-01-12 23:53 | Observation (INO) | payer OTHER, MEDICAID, MEDICARE, SELFPAY ==
[2025-01-13] VITALS (9 sets, daily range): BP systolic 101–140; BP diastolic 60–84; PULSE 74–87; RESP 16–20; TEMP 36.1–37.1; O2SAT 93–98; BMI 25.7
--- NOTE | 2025-01-13 01:03 | PD.EDRME ---
Rapid Medical Screening Exam RME Arrival date/time: 01/12/25 23:53 This is a case of 84-year-old female with history of dysphagia esophagitis with PEG tube was brought by the daughter due to G-tube malfunction daughter stated that they were not able to give food via PEG tube in addition there is redness swelling discharge around the PEG tube patient also complaining of abdominal pain no nausea no vomiting no diarrhea no constipation Chief Complaint: General Adult/Misc Complain Time Seen by Provider: 01/13/25 01:02 Vital signs: Vital Signs Temperature 98.8 F 01/13/25 00:57 Pulse Rate 86 01/13/25 00:57 Respiratory Rate 18 01/13/25 00:57 Blood Pressure 101/66 01/13/25 00:57 Pulse Oximetry (%) 95 01/13/25 00:57 Oxygen Delivery Method Room Air 01/13/25 00:57
--- NOTE | 2025-01-13 01:26 | EDNOTE_ITS ---
ED General RME/HPI General Chief complaint: General Adult/Misc Complain Stated complaint: PT THINKS HER GT IS INFECTED Time Seen by Provider: 01/13/25 01:02 Arrival date/time: 01/12/25 23:53 RME / HPI RME / HPI narrative: 01/12/25 23:53 This is a case of 84-year-old female with history of dysphagia esophagitis with PEG tube was brought by the daughter due to G-tube malfunction daughter stated that they were not able to give food via PEG tube in addition there is redness swelling discharge around the PEG tube patient also complaining of abdominal pain no nausea no vomiting no diarrhea no constipation DR. APONTE MAIN ED EVALUATION: 84 y/o female with Hx of Dysphagia and Gastrostomy presents to ED c/o stoma leaking food and water x 3.5 hours. Per daughter, G-tube has been in place for over 1 month. Related Data Home Medications ?Medication ?Instructions ?Recorded ?Confirmed albuterol sulfate 90 mcg/actuation 2 puff inhalation Q 6H PRN Wheezing 03/30/21 11/27/24 aerosol inhaler lisinopril 10 mg tablet 10 mg PO QDAY 03/30/2111/27 lorazepam 0.5 mg tablet 0.5 mg PO QDAY 03/30/2111/06 atorvastatin 20 mg tablet 20 mg PO HS 11/27/24 5 escitalopram oxalate 10 mg tablet 10 mg PO QDAY 11/27/24 ibuprofen 600 mg tablet 600 mg PO Q6H PRN pain 11/2711/27/24 Previous Rx's ?Medication ?Instructions ?Recorded hydrocodone 10 mg-acetaminophen 1 tab PO TID PRN break through pain 04/01/21 325 mg tablet #0 tabs pantoprazole 40 mg tablet,delayed 40 mg PO QDAY #30 ta bs 11/30/24 release (Protonix) lactose-reduced food with fiber 1 ea feeding tube 5 TI MES DAILY 12/01/24 0.06 gram-1.5 kcal/mL oral liquid #5,688 mL (Jevity 1.5 Clint) ondansetron HCl 4 mg/5 mL oral 4 mg (5 mL) feeding tub e Q8H PRN 12/01/24 solution nausea and vomiting #100 mL Allergies Allergy/AdvReac Type Severity Reaction Status Date / Time codeine Allergy Severe PASS OUT Verified 11/26/24 16:09 Review of Systems Review of Systems Systems Reviewed: All systems reviewed, normal except as documented Past Medical History Past Medical History CARDIAC: Positive Hypertension PSYCHO/SOCIAL: Positive Depression and Anxiety Surgical History SURGICAL: Positive Gastrostomy Social History SMOKING STATUS: Former smoker ED Exam Narrative Physical exam: Generally patient is alert somewhat anxious but no obvious distress, heart regular rate and rhythm, lungs clear to auscultation equal laterally, abdomen soft bowel sounds present G-tube in place with erythema and swelling around the G-tube site Course Quality Measures none Orders Category Date Time Status CT Screening NOW Care 01/13/25 01:02 Completed Insert IV NOW Care 01/13/25 01:22 Completed KUB [XR abdomen 1V] Stat Exams 01/13/25 01:42 Taken CBC Stat Lab 01/13/25 01:22 Completed CMP [Comprehensive Metabolic Panel] Stat Lab 01/13/25 01:22 Completed Vital Signs Vital signs: Vital Signs Temperature 98.8 F 01/13/25 00:57 Pulse Rate 86 01/13/25 00:57 Respiratory Rate 18 01/13/25 00:57 Blood Pressure 101/66 01/13/25 00:57 Pulse Oximetry (%) 95 01/13/25 00:57 Oxygen Delivery Method Room Air 01/13/25 00:57 Discharge Plan Plan Patient Disposition: Admit Acute Care w/in Hospital Prescriptions/Referrals Prescriptions/Med Rec: No Action lorazepam 0.5 mg tablet 0.5 mg PO QDAY lisinopril 10 mg tablet 10 mg PO QDAY Patient Comments: TAKE ONE TABLET BY MOUTH EVERY DAY FOR BLOOD PRESSURE albuterol sulfate 90 mcg/actuation HFA aerosol inhaler 2 puff INHALATION Q6H PRN (Reason: Wheezing) Patient Comments: INHALE TWO PUFFS BY MOUTH EVERY 6 TO 8 HOURS NEEDED hydrocodone-acetaminophen 10-325 mg tablet 1 tab PO TID PRN (Reason: breakthrough pain) Qty: 0 0RF escitalopram oxalate 10 mg tablet 10 mg PO QDAY Patient Comments: TAKE ONE TABLET BY MOUTH EVERY DAY ibuprofen 600 mg tablet 600 mg PO Q6H PRN (Reason: pain) Patient Comments: TAKE ONE TABLET BY MOUTH EVERY 6 TO 8 HOURS WITH FOOD OR MILK NEEDED FOR PAIN atorvastatin 20 mg tablet 20 mg PO HS Patient Comments: TAKE ONE TABLET BY MOUTH AT BEDTIME FOR CHOLESTEROL pantoprazole [Protonix] 40 mg tablet,delayed release (DR/EC) 40 mg PO QDAY Qty: 30 0RF Jevity 1.5 Clint 0.06 gram-1.5 kcal/mL liquid 1 ea feeding tube 5 TIMES DAILY Qty: 5688 0RF Rx Instructions: 240 mL 5 times daily ondansetron HCl 4 mg/5 mL solution 4 mg feeding tube Q8H PRN (Reason: nausea and vomiting) Qty: 100 0RF Problem List Clinical Impression: Malfunction of gastrostomy tube Patient/Caregiver Discharge Instructions Print Language: [place] Citizen Stand Alone Forms: Sofy Award Info., Patient Portal Info Letter MDM Narrative [facility] hospital course: Scribe Attestation: Qian Kelley, am scribing for and in the presence of Dr. Aponte. Provider Notation: Although this document has been carefully reviewed, there may still be some phonetic and other typographical errors. These errors are purely grammatical due to imperfections in the software program and should not be construed in any way to compromise the substance of the patient's medical care during this visit. The G-tube insertion site appears to be erythematous and mildly swollen. An attempt to confirm placement of the G-tube that is currently in place with 30 cc of Gastrografin down the G-tube showed the Gastrografin to go to the end of the G-tube but then bubble out the abdominal wall's. No Gastrografin was seen to go into the stomach. I discussed the case with the patient's GI physician who placed the PEG tube, Dr. De Dios, who asked for the patient to be admitted so he can see the patient in the hospital in the morning and decide treatment options to either dilate the area of the PEG tube or to change out the PEG tube. I discussed the case with the hospitalist and the patient will be admitted to the hospital for further treatment and evaluation. Clinical Information Provided by patient and family (Daughter) Medical Records Reviewed [facility] Reviewed prior ED records from 11/26/24. Patient was seen for Dysphagia. Meds/Rx Considered, not Ordered None Labs/Rad/Tests considered, not Ordered None EKG EKG not done Lab Interpretation Labs: interpreted by me and see narrative above Imaging Imaging interpretation: interpreted by me and see narrative above Radiology reports / interpretation(s): RADIOLOGY Abdomen X-Ray: Pending official radiology report. Medication Administration(s) none See above if any Consultations/Discussions re: Management Consult #1: Date/time: 01/13/25 2:04 am Physician, specialty, service, details: Dr. De Dios made aware of the patient?s HPI, PMHx, lab and/or radiology results. Treatment plan was discussed. Will admit for further evaluation and management. Accepts patient for admission. Consult #2: Date/time: 01/13/25 2:06 am Physician, specialty, service, details: Hospitalist made aware of the patient?s HPI, PMHx, lab and/or radiology results. Discussed treatment plan. Will consult an admission to the hospitalist. Diagnosis Differential diagnosis: tube dislodgement, blockage, or breakage, cellulitis Dispositon Disposition: Admit
[2025-01-13 01:29] LABS: Basophils # (Auto) 0.1 Thou/mm3 (0.0-0.2); Basophils % (Auto) 1 % (0-2.5); Eosinophils # (Auto) 0.2 Thou/mm3 (0.0-0.5); Eosinophils % (Auto) 2 % (0-10); Hematocrit 43.8 % (36.0-46.0); Hemoglobin 14.1 g/dL (12.0-16.0); Immature Granulocytes Auto 0.04 Thou/mm3 (0.00-0.00); Lymphocytes # (Auto) 2.3 Thou/mm3 (1.0-4.8); Lymphocytes % (Auto) 20 % (10-50); Mean Corpuscular HGB Conc 32.2 g/dl (31.0-37.0); Mean Corpuscular Hemoglobin 29.7 pg (25.0-35.0); Mean Corpuscular Volume 92 fL (80-100); Monocytes # (Auto) 0.9 Thou/mm3 (0.0-0.8); Monocytes % (Auto) 8 % (0-12); Neutrophils # (Auto) 8.3 Thou/mm3 (1.8-7.7); Neutrophils % (Auto) 70 % (37-80); Nucleated Red Blood Cell # 0.00 Thou/mm3 (0.00-0.00); Nucleated Red Blood Cell % 0 /100 WBC (0); Platelet Count 262 Thou/mm3 (140-440); RDW Standard Deviation 45.3 fL (36.4-46.3); Red Blood Count 4.75 Miln/mm3 (4.00-5.20); White Blood Count 11.8 Thou/mm3 (3.6-11.0)
--- NOTE | 2025-01-13 01:42 | XR_ITS ---
Examination: Abdomen AP single view Technique: AP portable supine abdomen, single view Exam date and time: January 13, 2025 0145 hrs. Indications: Unknown position gastrostomy tube which is not functioning Findings: Opacification gastrostomy tube and minimal amounts of contrast at the end of the gastrostomy tube No opacification of the stomach Large amounts of stool throughout the entire colon Impression: Opacification of gastrostomy tube and minimal amounts of contrast at the gastrostomy tube, no opacification of the stomach, consider CT scan abdomen without contrast follow-up
[2025-01-13 01:46] LABS: Alanine Aminotransferase 14 U/L (10-49); Albumin, Serum 4.3 gm/dL (3.4-4.8); Albumin/Globulin Ratio 1.5 (1.2-2.2); Alkaline Phosphatase 83 U/L (46-116); Anion Gap 10 (7-16); Aspartate Amino Transferase 18 U/L (0-34); BUN/Creatinine Ratio 21 Ratio (12-20); Bilirubin,Total 0.3 mg/dL (0.3-1.2); Blood Urea Nitrogen 23 mg/dL (9-23); Calcium 11.1 mg/dL (8.3-10.6); Calcium (Corrected) 11.1 mg/dL (8.5-10.1); Carbon Dioxide 28.3 mMol/L (20.0-31.0); Chloride 102 mMol/L (98-107); Creatinine (Component) 1.1 mg/dL (0.6-1.3); Globulin 2.9 gm/dL (2.3-3.5); Glucose 119 mg/dL (74-106); Osmolality,Calculated 284 (275-295); Potassium 4.2 mMol/L (3.4-5.1); Sodium 140 mMol/L (136-145); Total Protein 7.2 gm/dL (5.7-8.2); eGFR 50 See Note
--- NOTE | 2025-01-13 02:01 | PC.NURSE ---
PT ARRIVED TO ED FOR INFECTED PEG TUBE STATED BY PTS DAUGHTER. PER DAUGHTER PT GOT THE TUBE PLACED APPROX 6 WEEKS AGO BY MATTHEW. THIS RN ATTEMPED TO IRRIGATE TUBE WITH NO SUCCESS. FLUID STARTED TO EXIST OUTSIDE SITE. PROVIDE NOTIFIED
--- NOTE | 2025-01-13 02:43 | ESPR_ITS ---
Documentation for date of: 01/13/25 Subjective Subjective Interval history: This is a 84-year-old female PMHx of oropharyngeal dysphagia s/p PEG tube placement, asthma, HTN, T2DM, tobacco use, and anxiety, presenting to ED with malfunctioning PEG tube and pain at stoma site. She was admitted last month for trouble swallowing and was diagnosed with progressive oropharyngeal dysphagia. At that time she underwent went EGD showing proximal esophageal narrowing and underwent dilation and PEG tube placement. Other EGD finding included esophagitis and gastritis. She was discharged on JEVITY per dietitian instruction, and has been using formula as instructed followed by water flushes, administered by her daughter at home. However, over the last few days, PEG tube has been malfunctioning, unable to push fluid through. Additionally, stoma site has been tender, worsened over the last day. Now severely tended to even minimal agitation. Complains of mild chills and feels slightly nauseous. Bowel movements have been regular, less BM was yesterday. Denies fever, headaches, chest pain, shortness of breath, cough, abdominal pain, vomiting, constipation, diarrhea, bloody stool, dysuria or hematuria, urinary urgency or frequency. Past Medical History: * As above. Past Surgical History: * Cholecystectomy. Medications: * PROTONIX 40 mg daily, ONDANSETRON 4 mg q.8h. PRN, JEVITY 1.5 rell, LORAZEPAM 0.5 mg daily, LISINOPRIL 10 mg daily, ALBUTEROL SULFATE 2 puffs q.6h. PRN, NORCO 10?3 25 PRN, ESCITALOPRAM q. day, IBUPROFEN 600 mg q.6h. PRN, ATORVASTATIN 20 mg daily. Allergies: * CODEINE (passed out) Family History: * None relevant. Social History: * Denies alcohol, drug. * [id number], current smoker. ED Course: * WNL: Afebrile, HR 86, BP 101/66, satting upper 90s on room air. * WBC 11.8, Hgb and platelets WNL. Normal coag studies. * CHEM panel significant for GLUCOSE 119, corrected calcium 11.1. * Normal LFTs, electrolytes, and renal function. She had unsuccessful attempt to flushing the PEG tube and replacement. GASTROGRAFIN was done showing obstruction in the PEG tube. Reason for admission: Given the type of PEG tube, GI was unable to perform replacement in the ED. Dr. De Dios recommended admission for PEG tube replacement in OR. Additionally, she has signs of infection around the stoma with slight purulent drainage and significant erythema and tenderness requiring ANTIBIOTICS. No signs of peritonitis. Exam Vital Signs Temp Pulse Resp BP Pulse Ox O2 Del Method 98.8 F 86 18 101/66 95 Room Air 01/13/25 00:57 01/13/25 00:57 01/13/25 00:57 01/13/25 00:57 01/13/25 00:57 01/13/25 00:57 Narrative Exam GENERAL * Normal appearing female, NAD. HEENT * NCAT.?HANNAH. Oral mucosa is moist. Patent Nares NECK * Supple, nontender, no JVD. CHEST * RRR, no m/g/r * CTAB, no w/r/r, symmetrical expansion. ABDOMEN * Soft, flat, nontender. No guarding/rebound tenderness/masses. * Bowel sounds presents. * PEG tube stoma site erythematous, tender to palpation and agitation of PEG tube, slight purulent drainage noted. EXTREMITIES * No edema/cyanosis.? SKIN * Warm and dry, no jaundice/rashes. NEUROMUSCULAR * No lumbar or midline, no CVA, no paraspinal muscle spasm or tenderness. * Moves all 4 extremities well, with full ROM and good CSM. * MIRNADA x4, CN II-XII grossly intact. * No focal neurologic deficits. PSYCHIATRY * Normal mood and affect, cooperative, no SI or HI or hallucinations. Objective Labs 01/13/25 01:22 01/13/25 01:22 Labs: Laboratory Results - last 24 hr 01/13/25 01:22 WBC 11.8 H RBC 4.75 Hgb 14.1 Hct 43.8 MCV 92 MCH 29.7 MCHC 32.2 RDW Std Deviation 45.3 Plt Count 262 Neut % (Auto) 70 Lymph % (Auto) 20 Nance % (Auto) 8 Eos % (Auto) 2 Baso % (Auto) 1 Neut # (Auto) 8.3 H Lymph # (Auto) 2.3 Nance # (Auto) 0.9 H Eos # (Auto) 0.2 Baso # (Auto) 0.1 Immature Gran # (Auto) 0.04 H Absolute Nucleated RBC 0.00 Immature Gran % 0 Nucleated RBC % 0 Sodium 140 Potassium 4.2 Chloride 102 Carbon Dioxide 28.3 Anion Gap 10 BUN 23 Creatinine 1.1 Estim Creat Clear Calc Not Performed. eGFR 50 L BUN/Creatinine Ratio 21 H Glucose 119 H Calculated Osmolality 284 Calcium 11.1 H Corrected Calcium 11.1 H Total Bilirubin 0.3 AST 18 ALT 14 Alkaline Phosphatase 83 Total Protein 7.2 Albumin 4.3 Globulin 2.9 Albumin/Globulin Ratio 1.5 Quality Measures Quality Measures none Advance care planning discussed with:: patient Assessment & Plan Assessment Current Active Medications: Generic Name Dose Route Start Last Admin Trade Name Freq PRN Reason Stop Dose Admin Acetaminophen 1,000 mg in 100 mls @ 250 mls/hr 01/13/25 02:38 Ofirmev Inj IV 01/13/25 18:23 Q6HR PRN Fever >100.4 or Pain 1-4 Sodium Chloride 1,000 mls @ 80 mls/hr 01/13/25 02:45 Ns IV 02/12/25 02:44 .[id number] PHILIPPE Ampicillin Sodium/Sulbactam 50 mls @ 100 mls/hr 01/13/25 02:45 Sodium 1.5 gm/ Sodium Chloride IV 01/20/25 02:44 Q6HR PHILIPPE Morphine Sulfate 2 mg 01/13/25 02:37 Morphine Sulf Inj 4 Mg/Ml Vial IVP 01/18/25 02:36 Q4HR PRN PAIN SCALE 4-10(Mod-Sev Ondansetron HCl 4 mg 01/13/25 02:35 Ondansetron Inj 2 Mg/Ml Inj 2 Ml IVP 02/12/25 02:34 Q6H PRN NAUSEA OR VOMITING Protocol Pantoprazole Sodium 40 mg 01/13/25 09:00 Pantoprazole Inj 40 Mg Vial IVP 02/12/25 08:59 QDAY PHILIPPE Plan This is a 84-year-old female PMHx of oropharyngeal dysphagia s/p PEG tube placement, asthma, HTN, T2DM, tobacco use, and anxiety, admitted for PEG tube malfunction. Appreciate recommendations from GI team. PEG tube malfunction Infected stoma site Oropharyngeal dysphagia s/p PEG tube Presenting with malfunctioning PEG tube, unable to push tube feeds through. There is evidence of stoma infection with erythema, tenderness, and purulent discharge surrounding PEG tube. No signs of peritonitis. She has mild leukocytosis of around 11, but afebrile, although complains of mild chills. Bowel movements have been regular and nonbloody. States she follows that she send instructions including post feed water flushes. GASTROGRAFIN showed obstructed PEG tube. GI consulted, will perform PEG tube replacement in OR. ? Continue UNASYN 1.5 mg q.6h. (01/13 to present) ? Continue PROTONIX 40 mg daily ? Continue ONDANSETRON 4 mg PRN ? Pain control ? NS maintenance at 80 cc/H ? N.p.o. midnight ? Registered dietitian consulted, appreciate recs Mild hypercalcemia Corrected calcium around 11, likely dehydrational. ? Anticipate improvement to fluids ? Daily labs HTN, HLD Currently normotensive. ? Resume home LISINOPRIL 20 mg daily when able ? Resume home ATORVASTATIN 20 mg daily when able Hx asthma No signs of asthma exacerbation. ? DuoNebs PRN Anxiety disorder ? Resume home ESCITALOPRAM 10 mg q. day and LORAZEPAM 0.5 mg q. day when able Health maintenance Diet: NPO GI prophylaxis: PROTONIX DVT prophylaxis: HEPARIN subcu x 1 Antibiotics: UNASYN CODE STATUS: Full code Disposition: Admitted for PEG tube replacement in the OR Case was discussed with attending physician, Dr. Figueroa. Michael Arroyo, PGY II This document was transcribed using voice recognition technology. Minor inaccuracies may be present. Attending Provider Attestation/Addendum After examination of the patient and review of the clinical data I feel that this patient needs admission to the hospital for further treatment/evaluation. Plan of care discussed with patient and is in agreement. I Delfina Figueroa MD, attest that I was physically present for ibrahim portions of evaluation, and examined patient, labs and imagings and plan of care were discussed with IM residents team, and I agree with the findings and plans documented above.
[2025-01-13] MEDS: HEPARIN SOD INJ 5000 UNIT/ML VIAL SC (03:04)
[2025-01-13] MEDS: SODIUM CHLORIDE 0.9% 1000 ML 1,000 ML 80 ML IV ×2 (04:00→18:00)
[2025-01-13] MEDS: AMPICILLIN/SULBAC INJ 1.5 GM in SODIUM CHLORIDE 0.9% (Popper) 50 ML IV ×4 (04:03→23:22)
[2025-01-13 05:30] LABS: Basophils # (Auto) 0.1 Thou/mm3 (0.0-0.2); Basophils % (Auto) 1 % (0-2.5); Eosinophils # (Auto) 0.2 Thou/mm3 (0.0-0.5); Eosinophils % (Auto) 2 % (0-10); Hematocrit 40.3 % (36.0-46.0); Hemoglobin 12.8 g/dL (12.0-16.0); Immature Granulocytes Auto 0.05 Thou/mm3 (0.00-0.00); Lymphocytes # (Auto) 2.0 Thou/mm3 (1.0-4.8); Lymphocytes % (Auto) 18 % (10-50); Mean Corpuscular HGB Conc 31.8 g/dl (31.0-37.0); Mean Corpuscular Hemoglobin 29.6 pg (25.0-35.0); Mean Corpuscular Volume 93 fL (80-100); Monocytes # (Auto) 0.6 Thou/mm3 (0.0-0.8); Monocytes % (Auto) 6 % (0-12); Neutrophils # (Auto) 8.1 Thou/mm3 (1.8-7.7); Neutrophils % (Auto) 74 % (37-80); Nucleated Red Blood Cell # 0.00 Thou/mm3 (0.00-0.00); Nucleated Red Blood Cell % 0 /100 WBC (0); Platelet Count 239 Thou/mm3 (140-440); RDW Standard Deviation 45.5 fL (36.4-46.3); Red Blood Count 4.32 Miln/mm3 (4.00-5.20); White Blood Count 11.0 Thou/mm3 (3.6-11.0)
[2025-01-13 05:50] LABS: INR 1.0 (0.9-1.3); Partial Thromboplastin Time 23.9 Seconds (22.0-36.0); Prothrombin Time 11.3 Seconds (9.0-12.2)
[2025-01-13 05:57] LABS: Alanine Aminotransferase 21 U/L (10-49); Albumin, Serum 4.0 gm/dL (3.4-4.8); Albumin/Globulin Ratio 1.5 (1.2-2.2); Alkaline Phosphatase 77 U/L (46-116); Anion Gap 9 (7-16); Aspartate Amino Transferase 15 U/L (0-34); BUN/Creatinine Ratio 21 Ratio (12-20); Bilirubin,Total 0.4 mg/dL (0.3-1.2); Blood Urea Nitrogen 21 mg/dL (9-23); Calcium 10.8 mg/dL (8.3-10.6); Calcium (Corrected) 10.8 mg/dL (8.5-10.1); Carbon Dioxide 30.2 mMol/L (20.0-31.0); Chloride 102 mMol/L (98-107); Creatinine (Component) 1.0 mg/dL (0.6-1.3); Estimated Creatinine Clearance 41.1 mL/min (>60); Globulin 2.7 gm/dL (2.3-3.5); Glucose 108 mg/dL (74-106); Magnesium 2.5 mg/dL (1.6-2.6); Osmolality,Calculated 285 (275-295); Phosphorous 3.8 mg/dL (2.4-5.1); Potassium 4.1 mMol/L (3.4-5.1); Sodium 141 mMol/L (136-145); Total Protein 6.7 gm/dL (5.7-8.2); eGFR 56 See Note
[2025-01-13] MEDS: MORPHINE SULF INJ 4 MG/ML VIAL 2 MG IVP ×3 (07:42→21:20)
--- NOTE | 2025-01-13 09:38 | PC.SS ---
Patient Vicky Perez is a 83 year old female who was admitted for Peg Tube Malfunction. SS made contact at bedside to complete initial assessment SS explained role and reason for visit. Patient reports she lives at home with her daughter and her family. Patient reports her surrogate decision makers are her daughters, Bette Luís ph:[phone] and Arely Joe daughter reports that she ambulates with a Rollator walker and cane. Pt. does not utilize oxygen at home. PCP is Dr. Jihan Bishop. Patient states pharmacy of choice is [facility]. Pt. participated in d/c plan and stated she will be returning home and is not needing any additional resources. Daughter Mery will provide transportation home. PCP:DR. Jihan Bishop Next of kin: Bette Staley ph: [phone]. Arely Joe d/c: home with daughter ?
--- NOTE | 2025-01-13 11:32 | PC.DIETICIAN ---
Dietitian recommendation: Jevity 1.5 at 20ml/hr, increase by 10ml Q 8 hrs as tolerated to goal of 50ml/hr x24hrs via G-tube by pump. If no IVF give water flush 40ml/hr or per MD. Provides: 1200ml total vol, 1800kcal, 77g protein. Thank you
[2025-01-13] MEDS: ACETAMINOPHEN IVPB 1,000 MG/100 ML VIAL 250 MG IV (13:35)
--- NOTE | 2025-01-13 13:57 | ESCONSULT_ITS ---
HPI Data of Consult Requesting Physician: Brenton Koehler MD Admitting Provider: Delfina Figueroa MD Attending Provider: Brenton Koehler MD Primary Care Provider: Jihan Bishop PA-C Consult Narrative Reason for consult: PEG tube Malfunction History of present illness: 84 y.o. female with PMH of HTN, HLD, anxiety presented with two days of inability to feed from the PEG tube which was placed in May as she was experiencing dysphagia to solid and liquids. PEG tube malfunction was noted by her daughter as she noted the feed coming out of the tube when trying to feed. She complained of diffuse abdominal pain, sharp, 10/10 on pain scale for which she received the medications in the hospital. Currently she is on the bed complaining of no pain. cc:: cc: Brenton Koehler MD Exam Vital Signs Temp Pulse Resp BP Pulse Ox O2 Del Method 97.7 F 80 18 137/79 H 93 L Room Air 01/13/25 12:00 01/13/25 12:00 01/13/25 12:00 01/13/25 12:00 01/13/25 12:00 01/13/25 12:00 Narrative Exam GENERAL: Normal appearing female, NAD. HEENT: NCAT.?HANNAH. Oral mucosa is moist. Patent Nares NECK: Supple, nontender, no JVD. CHEST: RRR, no m/g/r ABDOMEN: * Soft, flat, nontender. No guarding/rebound tenderness/masses. * Bowel sounds presents. * PEG tube stoma site non erythematous on exam, tender to palpation and agitation of PEG tube, slight blood drainage noted. no oozing or purulent dishcarge noted EXTREMITIES: No edema/cyanosis.? SKIN: Warm and dry, no jaundice/rashes. Results Labs 01/13/25 04:39 01/13/25 04:39 Labs: Short CBC 01/13/25 01/13/25 Range/Units 01:22 04:39 WBC 11.8 H 11.0 (3.6-11.0) Thou/mm3 Hgb 14.1 12.8 (12.0-16.0) g/dL Hct 43.8 40.3 (36.0-46.0) % Plt Count 262 239 (140-440) Thou/mm3 BMP 01/13/25 01/13/25 01:22 04:39 Sodium 140 141 Potassium 4.2 4.1 Chloride 102 102 Carbon Dioxide 28.3 30.2 BUN 23 21 Creatinine 1.1 1.0 Glucose 119 H 108 H Calcium 11.1 H 10.8 H Liver Function 01/13/25 01/13/25 Range/Units 01:22 04:39 Total Bilirubin 0.3 0.4 (0.3-1.2) mg/dL AST 18 15 (0-34) U/L ALT 14 21 (10-49) U/L Alkaline Phosphatase 83 77 (46-116) U/L Albumin 4.3 4.0 (3.4-4.8) gm/dL Quality Measures Quality Measures VTE prophylaxis and none Advance care planning discussed with:: patient Medications Home Medications and Allergies Home Medications ?Medication ?Instructions ?Recorded ?Confirmed ?Type albuterol sulfate 90 mcg/actuation 2 puff inhalation Q 6H PRN Wheezing 03/30/21 01/13/25 History aerosol inhaler lisinopril 10 mg tablet 10 mg PO QDAY 03/30/2101/13 History lorazepam 0.5 mg tablet 0.5 mg PO QDAY 03/30/2112/30 History atorvastatin 20 mg tablet 20 mg PO HS 11/27/24 5 History escitalopram oxalate 10 mg tablet 10 mg PO QDAY 01/13/25 History ibuprofen 600 mg tablet 600 mg PO Q6H PRN pain 11/2701/13/25 History Allergies Allergy/AdvReac Type Severity Reaction Status Date / Time codeine Allergy Severe PASS OUT Verified 11/26/24 16:09 Visit Medications Albuterol/Ipratropium (Albuterol/Ipratropium (Duoneb) Rt Hayley 3 Ml Nebu) 3 ml INH Q6HRRT PRN PRN Reason: Wheezing Stop: 02/12/25 02:57 Sodium Chloride (Ns) 1,000 mls @ 80 mls/hr IV .[id number] [facility] Stop: 02/12/25 02:44 Last Admin: 01/13/25 04:00 Dose: 80 mls/hr Ampicillin Sodium/Sulbactam (Sodium 1.5 gm/ Sodium Chloride) 50 mls @ 100 mls/hr IV Q6HR PHILIPPE Stop: 01/20/25 02:44 Last Admin: 01/13/25 11:42 Dose: 100 mls/hr Acetaminophen (Ofirmev Inj) 1,000 mg in 100 mls @ 250 mls/hr IV Q6HR PRN PRN Reason: Fever >100.4 or Pain 1-3 Stop: 01/13/25 18:23 Last Admin: 01/13/25 13:35 Dose: 250 mls/hr Morphine Sulfate (Morphine Sulf Inj 4 Mg/Ml Vial) 2 mg IVP Q4HR PRN PRN Reason: PAIN SCALE 4-10(Mod-Sev Stop: 01/18/25 02:36 Last Admin: 01/13/25 07:42 Dose: 2 mg Ondansetron HCl (Ondansetron Inj 2 Mg/Ml Inj 2 Ml) 4 mg IVP Q6H PRN; Protocol PRN Reason: NAUSEA OR VOMITING Stop: 02/12/25 02:34 Pantoprazole Sodium (Pantoprazole Inj 40 Mg Vial) 40 mg IVP QDAY PHILIPPE Stop: 02/12/25 08:59 Last Admin: 01/13/25 08:32 Dose: 40 mg Discontinued Medications Heparin Sodium (Porcine) (Heparin Sod Inj 5000 Unit/Ml Vial) 5,000 unit SC X1 ONE Stop: 01/13/25 02:38 Last Admin: 01/13/25 03:04 Dose: 5,000 unit Acetaminophen (Ofirmev Inj) 1,000 mg in 100 mls @ 250 mls/hr IV Q6HR PRN PRN Reason: Fever >100.4 or Pain 1-4 Stop: 01/13/25 18:23 Assessment & Plan Plan 84 y.o female with PMH of HTN, HLD, anxiety presented with PEG tube malfunction that started two days ago. # PEG tube malfunction # Oropharyngeal dysphagia s/p PEG tube PEG tube was pulled out and not in place Plan: -Keep NPO -Will remove and replace peg tube possibly tonight Chronic Problems: # Mild hypercalcemia # HTN, HLD # Hx asthma # Anxiety disorder ----- Plan discussed with attending physician Dr. Lanre Bauman MD PGY-1 Internal Medicine Attending Provider Attestation/Addendum Patient evaluated Laboratory workup reviewed Case also discussed with the internal medicine team The PEG tube is laying in the subcutaneous tissue and not in the body of the stomach and can be moved Plan is to remove the PEG tube and put a new PEG tube there is surrounding cellulitis of the tube as well I have got an informed consent for PEG tube removal and PEG tube insertion via fiberoptic esophagogastroduodenoscopy under intravenous moderate sedation Thank you very much for the opportunity to participate in the care of this patient
--- NOTE | 2025-01-13 16:00 | PC.NURSE ---
PATIENT GAVE VERBAL CONSENT TO HAVE HER DAUGHTER SIGN SURGICAL CONSENT.
--- NOTE | 2025-01-13 18:02 | PD.RESPRO ---
Documentation for date of: 01/13/25 Subjective Subjective Interval history: Patient examined at bedside. Vitals are stable, labs unremarkable. Patient complains of stoma site tenderness. On exam noticeable erythema with some bleeding. She lives at home alone with family members who assist in caretaking. Stated that her daughter is a family member that manages PEG tube feeds with cleaning. Patient apparently still tries to eat soft foods such as baby food or mashed potatoes. She was advised to remain NPO due to her dysphagia as oral intake poses significant choking and aspiration risk. GI was consulted for evaluation. Plan to replace PEG tube tonight or partnership development manager. Wound referred for site maintenance. Continue IV Unasyn and maintenance fluids. Glucose checks q6hrs. Exam Vital Signs Temp Pulse Resp BP Pulse Ox O2 Del Method 97.4 F 74 18 116/60 93 L Room Air 01/13/25 15:53 01/13/25 15:53 01/13/25 15:53 01/13/25 15:53 01/13/25 15:53 01/13/25 15:53 Narrative Exam General:Elderly female, No acute distress, cooperative HEENT: NCAT, No JVD noted. Mucosa moist. Pupils are equal and reactive to light bilaterally Cardiovascular: Normal S1 and S2. Regular rate and rhythm. Respiratory: Lungs are clear to auscultation bilaterally. No wheezing or crackles heard. Abdomen: Soft, not distended, normal bowel sounds. PEG tube stoma site erythematous, tender to palpation and agitation of PEG tube, slight purulent drainage noted. Skin: Warm to touch, dry, no rashes noted Musculoskeletal: No gross injuries. Able to move all 4 extremities. No pitting edema Neuro: Alert and oriented x3. No focal neuro deficits. Psych: Normal affect and mood Objective Labs 01/13/25 04:39 01/13/25 04:39 Labs: Laboratory Results - last 24 hr 01/13/25 01/13/25 01:22 04:39 WBC 11.8 H 11.0 RBC 4.75 4.32 Hgb 14.1 12.8 Hct 43.8 40.3 MCV 92 93 MCH 29.7 29.6 MCHC 32.2 31.8 RDW Std Deviation 45.3 45.5 Plt Count 262 239 Neut % (Auto) 70 74 Lymph % (Auto) 20 18 [place] % (Auto) 8 6 Eos % (Auto) 2 2 Baso % (Auto) 1 1 Neut # (Auto) 8.3 H 8.1 H Lymph # (Auto) 2.3 2.0 [place] # (Auto) 0.9 H 0.6 Eos # (Auto) 0.2 0.2 Baso # (Auto) 0.1 0.1 Immature Gran # (Auto) 0.04 H 0.05 H Absolute Nucleated RBC 0.00 0.00 Immature Gran % 0 1 H Nucleated RBC % 0 0 PT 11.3 INR 1.0 APTT 23.9 Sodium 140 141 Potassium 4.2 4.1 Chloride 102 102 Carbon Dioxide 28.3 30.2 Anion Gap 10 9 BUN 23 21 Creatinine 1.1 1.0 Estim Creat Clear Calc Not Performed. 41.1 L eGFR 50 L 56 L BUN/Creatinine Ratio 21 H 21 H Glucose 119 H 108 H Calculated Osmolality 284 285 Calcium 11.1 H 10.8 H Corrected Calcium 11.1 H 10.8 H Phosphorus 3.8 Magnesium 2.5 Total Bilirubin 0.3 0.4 AST 18 15 ALT 14 21 Alkaline Phosphatase 83 77 Total Protein 7.2 6.7 Albumin 4.3 4.0 Globulin 2.9 2.7 Albumin/Globulin Ratio 1.5 1.5 Quality Measures Quality Measures VTE prophylaxis and none Advance care planning discussed with:: patient Assessment & Plan Assessment Current Active Medications: Generic Name Dose Route Start Last Admin Trade Name Freq PRN Reason Stop Dose Admin Albuterol/Ipratropium 3 ml 01/13/25 02:58 Albuterol/Ipratropium (Duoneb) Rt Hayley 3 Ml Nebu INH 02/12/25 02:57 Q6HRRT PRN Wheezing Sodium Chloride 1,000 mls @ 80 mls/hr 01/13/25 02:45 01/13/25 18:00 Ns IV 02/12/25 02:44 80 mls/hr .[id number] PHILIPPE Administration Ampicillin Sodium/Sulbactam 50 mls @ 100 mls/hr 01/13/25 02:45 01/13/25 11:42 Sodium 1.5 gm/ Sodium Chloride IV 01/20/25 02:44 100 mls/hr Q6HR PHILIPPE Administration Acetaminophen 1,000 mg in 100 mls @ 250 mls/hr 01/13/25 02:43 01/13/25 13:35 Ofirmev Inj IV 01/13/25 18:23 250 mls/hr Q6HR PRN Administration Fever >100.4 or Pain 1-3 Morphine Sulfate 2 mg 01/13/25 02:37 01/13/25 16:10 Morphine Sulf Inj 4 Mg/Ml Vial IVP 01/18/25 02:36 2 mg Q4HR PRN Administration PAIN SCALE 4-10(Mod-Sev Ondansetron HCl 4 mg 01/13/25 02:35 Ondansetron Inj 2 Mg/Ml Inj 2 Ml IVP 02/12/25 02:34 Q6H PRN NAUSEA OR VOMITING Protocol Pantoprazole Sodium 40 mg 01/13/25 09:00 01/13/25 08:32 Pantoprazole Inj 40 Mg Vial IVP 02/12/25 08:59 40 mg QDAY PHILIPPE Administration Plan This is a 84-year-old female PMHx of oropharyngeal dysphagia s/p PEG tube placement, asthma, HTN, T2DM, tobacco use, and anxiety, admitted for PEG tube malfunction. Appreciate recommendations from GI team. PEG tube malfunction Infected stoma site Oropharyngeal dysphagia s/p PEG tube Presenting with malfunctioning PEG tube, unable to push tube feeds through. There is evidence of stoma infection with erythema, tenderness, and purulent discharge surrounding PEG tube. No signs of peritonitis. She has mild leukocytosis of around 11, but afebrile, although complains of mild chills. Bowel movements have been regular and nonbloody. States she follows that she send instructions including post feed water flushes. GASTROGRAFIN showed obstructed PEG tube. GI consulted, will perform PEG tube replacement in OR. ? Continue UNASYN 1.5 mg q.6h. (01/13 to present) ? Continue PROTONIX 40 mg daily ? Continue ONDANSETRON 4 mg PRN ? Pain control ? NS maintenance at 80 cc/H ? N.p.o. midnight ? Registered dietitian consulted, appreciate recs -PT pending Mild hypercalcemia Corrected calcium around 11, likely dehydrational. ? Anticipate improvement to fluids ? Daily labs HTN, HLD Currently normotensive. ? Resume home LISINOPRIL 20 mg daily when able ? Resume home ATORVASTATIN 20 mg daily when able Hx asthma No signs of asthma exacerbation. ? DuoNebs PRN Anxiety disorder ? Resume home ESCITALOPRAM 10 mg q. day and LORAZEPAM 0.5 mg q. day when able Health maintenance Diet: NPO GI prophylaxis: PROTONIX DVT prophylaxis: HEPARIN subcu Antibiotics: UNASYN CODE STATUS: Full code Disposition: Admitted for PEG tube replacement in the OR Case was discussed with attending physician, Dr. Koehler. Rosetta Costello, PGY2 Attending Provider Attestation/Addendum I have examined the patient, reviewed labs and imaging findings, discussed the case with the resident(s), and reviewed entered orders. I agree with the plan of care as outlined in this note, with these additional summaries/recommendations: Patient seen at bedside. She is seen resting comfortably. She denies any trauma to PEG tube site. She reports she thinks she saw tube feeds coming out around PEG tube. On physical exam PEG tube site noted to have dried blood surrounding it although no significant erythema or discharge. Nonetheless we will cover with IV antibiotic for now. Gastroenterology has been consulted for PEG tube malfunction with plans for replacement in the OR. Continue IV fluids and pain management. In-house dietary consulted to resume tube feeds when able. Patient was counseled on PEG tube protection techniques. Hypercalcemia improving with IV fluids which we will continue. Most likely elevated secondary to dehydration. Continue home lisinopril for primary hypertension and atorvastatin for hyperlipidemia. Breathing treatments as needed for asthma. Patient updated on the plan and in agreement. All questions answered to satisfaction. Please see residents note for additional details and management. Dr. Rodo MD
[2025-01-14] VITALS (18 sets, daily range): BP systolic 116–170; BP diastolic 58–103; PULSE 62–96; RESP 13–20; TEMP 36.1–37; O2SAT 94–100
[2025-01-14] MEDS: MORPHINE SULF INJ 4 MG/ML VIAL 2 MG IVP ×4 (01:23→21:43)
[2025-01-14] MEDS: AMPICILLIN/SULBAC INJ 1.5 GM in SODIUM CHLORIDE 0.9% (Popper) 50 ML IV ×4 (05:26→23:39)
[2025-01-14 06:13] LABS: Basophils # (Auto) 0.1 Thou/mm3 (0.0-0.2); Basophils % (Auto) 1 % (0-2.5); Eosinophils # (Auto) 0.2 Thou/mm3 (0.0-0.5); Eosinophils % (Auto) 3 % (0-10); Hematocrit 37.6 % (36.0-46.0); Hemoglobin 12.1 g/dL (12.0-16.0); Immature Granulocytes Auto 0.04 Thou/mm3 (0.00-0.00); Lymphocytes # (Auto) 1.8 Thou/mm3 (1.0-4.8); Lymphocytes % (Auto) 21 % (10-50); Mean Corpuscular HGB Conc 32.2 g/dl (31.0-37.0); Mean Corpuscular Hemoglobin 30.2 pg (25.0-35.0); Mean Corpuscular Volume 94 fL (80-100); Monocytes # (Auto) 0.5 Thou/mm3 (0.0-0.8); Monocytes % (Auto) 5 % (0-12); Neutrophils # (Auto) 6.1 Thou/mm3 (1.8-7.7); Neutrophils % (Auto) 70 % (37-80); Nucleated Red Blood Cell # 0.00 Thou/mm3 (0.00-0.00); Nucleated Red Blood Cell % 0 /100 WBC (0); Platelet Count 225 Thou/mm3 (140-440); RDW Standard Deviation 45.5 fL (36.4-46.3); Red Blood Count 4.01 Miln/mm3 (4.00-5.20); White Blood Count 8.7 Thou/mm3 (3.6-11.0)
[2025-01-14 06:44] LABS: Alanine Aminotransferase 8 U/L (10-49); Albumin, Serum 3.5 gm/dL (3.4-4.8); Albumin/Globulin Ratio 1.3 (1.2-2.2); Alkaline Phosphatase 74 U/L (46-116); Anion Gap 12 (7-16); Aspartate Amino Transferase 15 U/L (0-34); BUN/Creatinine Ratio 20 Ratio (12-20); Bilirubin,Total 0.4 mg/dL (0.3-1.2); Blood Urea Nitrogen 18 mg/dL (9-23); Calcium 10.0 mg/dL (8.3-10.6); Calcium (Corrected) 10.4 mg/dL (8.5-10.1); Carbon Dioxide 25.2 mMol/L (20.0-31.0); Chloride 108 mMol/L (98-107); Creatinine (Component) 0.9 mg/dL (0.6-1.3); Estimated Creatinine Clearance 45.7 mL/min (>60); Globulin 2.7 gm/dL (2.3-3.5); Glucose 84 mg/dL (74-106); Magnesium 2.2 mg/dL (1.6-2.6); Osmolality,Calculated 289 (275-295); Phosphorous 3.8 mg/dL (2.4-5.1); Potassium 3.8 mMol/L (3.4-5.1); Sodium 145 mMol/L (136-145); Total Protein 6.2 gm/dL (5.7-8.2); eGFR > 60 See Note
--- NOTE | 2025-01-14 09:31 | SUR.PHASEI ---
0931 patient arrived to recovery resting comfortably in [facility], drowsy and talking with staff, breathing unlabored, vital signs stable, denies pain and nausea, dressing intact to abdomen; peg tube in place with drain sponge, site from previous peg tube has dressing of gauze and medipore tape, no bleeding noted, report received from Liza ROMAN
--- NOTE | 2025-01-14 10:02 | SUR.PHASEI ---
0957 Report given to Melanie ROMAN, patient meets discharge criteria from recovery, awake and alert, breathing unlabored, vital signs stable, denies pain, dressing intact; no bleeding noted, denies nausea 1002 patient transported via gurney to room 364 without incident, patient transferred from [place] to bed with assistance of RN zaynab Burns, patient resting comfortably in bed with call light in reach when this account underwriter left patients room
[2025-01-14] MEDS: SODIUM CHLORIDE 0.9% 1000 ML 1,000 ML 80 ML IV (12:57)
--- NOTE | 2025-01-14 16:00 | PC.SS ---
SS follow up note; G Tube feeding needs to be at goal rate. Pending Peg tube replacement. Patient will discharge home when medically.
--- NOTE | 2025-01-14 20:41 | ESPR_ITS ---
<Statement entered by Rosetta Costello MD - 01/14/25 21:19> Note reviewed, I agree with most of its contents and agree with the patient's care as documented by Dr. Araya. The patient's management plan was discussed with my attending physician Dr. Ferreira. Rosetta Costello, PGY-2 Documentation for date of: 01/14/25 Subjective Subjective Interval history: Patient examined at bedside. Vitals signs stable, electrolytes unremarkable. This morning, patient had her non-functional PEG tube replaced. She was still a bit drowsy at the time of examination. PEG can now be used for water, nutrition, and meds per GI. Jevity feeds were restarted at 30 mL/hr to be increased by 10 mL every 4 hours with a goal of 50 mL/hr x24 hrs. Continue Unasyn for stomal site infection. Exam Vital Signs Temp Pulse Resp BP Pulse Ox O2 Del Method O2 Flow Rate 98.4 F 73 16 147/70 H 94 L Room Air 3 01/14/25 20:00 01/14/25 20:00 01/14/25 20:00 01/14/25 20:00 01/14/25 20:01/14/25 20:00 01/14/25 09:20 Narrative Exam General:Elderly female, No acute distress, mildly somnolent post sedation HEENT: NCAT, No JVD noted. Mucosa moist. Pupils are equal and reactive to light bilaterally Cardiovascular: Normal S1 and S2. Regular rate and rhythm. Respiratory: Lungs are clear to auscultation bilaterally. No wheezing or crackles heard. Abdomen: Soft, not distended, normal bowel sounds. PEG tube stoma site stained with betadine postoperatively, tender to palpation and agitation of PEG tube. Skin: Warm to touch, dry, no rashes noted Musculoskeletal: No gross injuries. Able to move all 4 extremities. No pitting edema Neuro: Alert and oriented x3. No focal neuro deficits. Psych: Normal affect and mood Objective Labs 01/15/25 04:19 01/15/25 04:19 Labs: Laboratory Results - last 24 hr 01/14/25 05:04 WBC 8.7 RBC 4.01 Hgb 12.1 Hct 37.6 MCV 94 MCH 30.2 MCHC 32.2 RDW Std Deviation 45.5 Plt Count 225 Neut % (Auto) 70 Lymph % (Auto) 21 [place] % (Auto) 5 Eos % (Auto) 3 Baso % (Auto) 1 Neut # (Auto) 6.1 Lymph # (Auto) 1.8 [place] # (Auto) 0.5 Eos # (Auto) 0.2 Baso # (Auto) 0.1 Immature Gran # (Auto) 0.04 H Absolute Nucleated RBC 0.00 Immature Gran % 1 H Nucleated RBC % 0 Sodium 145 Potassium 3.8 Chloride 108 H Carbon Dioxide 25.2 Anion Gap 12 BUN 18 Creatinine 0.9 Estim Creat Clear Calc 45.7 L eGFR > 60 BUN/Creatinine Ratio 20 Glucose 84 Calculated Osmolality 289 Calcium 10.0 Corrected Calcium 10.4 H Phosphorus 3.8 Magnesium 2.2 Total Bilirubin 0.4 AST 15 ALT 8 L Alkaline Phosphatase 74 Total Protein 6.2 Albumin 3.5 D Globulin 2.7 Albumin/Globulin Ratio 1.3 Quality Measures Quality Measures VTE prophylaxis and none Advance care planning discussed with:: other Assessment & Plan Assessment Current Active Medications: Generic Name Dose Route Start Last Admin Trade Name Freq PRN Reason Stop Dose Admin Albuterol/Ipratropium 3 ml 01/13/25 02:58 Albuterol/Ipratropium (Duoneb) Rt Hayley 3 Ml Nebu INH 02/12/25 02:57 Q6HRRT PRN Wheezing Dextrose 25 ml 01/13/25 18:25 Dextrose 50%-Water Inj 50 Ml Syringe IV 02/12/25 18:24 Q15MIN PRN BG 50-70 responsive npo pt Dextrose 50 ml 01/13/25 18:25 Dextrose 50%-Water Inj 50 Ml Syringe IV 02/12/25 18:24 Q15MIN PRN BG <50 OR BG <70 & pt unresponsive Glucagon 1 mg 01/13/25 18:25 Glucagon Inj 1 Mg Vial IM Q15MIN PRN BG <70, and no IV access Sodium Chloride 1,000 mls @ 80 mls/hr 01/13/25 02:45 01/14/25 12:57 Ns IV 02/12/25 02:44 80 mls/hr .[id number] PHILIPPE Administration Ampicillin Sodium/Sulbactam 50 mls @ 100 mls/hr 01/13/25 02:45 01/14/25 18:29 Sodium 1.5 gm/ Sodium Chloride IV 01/20/25 02:44 100 mls/hr Q6HR PHILIPPE Administration Morphine Sulfate 2 mg 01/13/25 02:37 01/14/25 16:25 Morphine Sulf Inj 4 Mg/Ml Vial IVP 01/18/25 02:36 2 mg Q4HR PRN Administration PAIN SCALE 4-10(Mod-Sev Ondansetron HCl 4 mg 01/13/25 02:35 Ondansetron Inj 2 Mg/Ml Inj 2 Ml IVP 02/12/25 02:34 Q6H PRN NAUSEA OR VOMITING Protocol Pantoprazole Sodium 40 mg 01/13/25 09:00 01/14/25 09:40 Pantoprazole Inj 40 Mg Vial IVP 02/12/25 08:59 Not Given QDAY PHILIPPE Plan This is a 84-year-old female PMHx of oropharyngeal dysphagia s/p PEG tube placement, asthma, HTN, T2DM, tobacco use, and anxiety, admitted for PEG tube malfunction. PEG tube was replaced on 01/14. Appreciate recommendations from GI team. PEG tube malfunction Infected stoma site Oropharyngeal dysphagia s/p PEG tube Presenting with malfunctioning PEG tube, unable to push tube feeds through. There is evidence of stoma infection with erythema, tenderness, and purulent discharge surrounding PEG tube. No signs of peritonitis. She has mild leukocytosis of around 11, but afebrile, although complains of mild chills. Bowel movements have been regular and nonbloody. States she follows that she send instructions including post feed water flushes. GASTROGRAFIN showed obstructed PEG tube. GI consulted, PEG tube was replaced on 01/14. -PEG can now be used for water, nutrition, and meds per GI. ? Continue UNASYN 1.5 mg q.6h. (01/13 to present) ? Continue PROTONIX 40 mg daily ? Continue ONDANSETRON 4 mg PRN ? Pain control ? Registered dietitian consulted, Jevity feeds were restarted at 30 mL/hr to be increased by 10 mL every 4 hours with a goal of 50 mL/hr x24 hrs. -PT eval conducted, no further needs at this point. Mild hypercalcemia Corrected calcium around 11, likely dehydrational. Trend improving, 10.8 -> 10.4 ? Anticipate improvement to fluids ? Daily labs HTN, HLD Currently normotensive. ? Resume home LISINOPRIL 20 mg daily when able ? Resume home ATORVASTATIN 20 mg daily when able Hx asthma No signs of asthma exacerbation. ? DuoNebs PRN Anxiety disorder ? Resume home ESCITALOPRAM 10 mg q. day and LORAZEPAM 0.5 mg q. day when able Health maintenance Diet: NPO GI prophylaxis: PROTONIX DVT prophylaxis: HEPARIN subcu, held for PEG replacement. Antibiotics: UNASYN CODE STATUS: Full code Disposition: Pending goal tube feeds. Case was discussed with attending physician, Dr. Ferreira. Patrice Araya DO PGY-1 ([facility] Resident) Attending Provider Attestation/Addendum I have discussed and was present for the essential components of the history, physical examination, diagnosis, and treatment plan with the resident. I agree with the patient's care as documented by the resident and amended herein by me. Demar Ferreira DO. Although this document has been carefully reviewed, there may still be some phonetic and other typographical errors. These errors are purely grammatical due to imperfections in the software program and should not be construed in any way to compromise the substance of the patient's medical care during this visit.
[2025-01-15] VITALS: BP 124/63; PULSE 76; PULSE 89; RESP 18; TEMP 36.5; O2SAT 96
[2025-01-15] MEDS: MORPHINE SULF INJ 4 MG/ML VIAL 2 MG IVP (02:21)
[2025-01-15] MEDS: SODIUM CHLORIDE 0.9% 1000 ML 1,000 ML 80 ML IV (03:01)
[2025-01-15 04:00] VITALS: BP 115/70; PULSE 78; RESP 16; TEMP 37.1; O2SAT 95
[2025-01-15] MEDS: AMPICILLIN/SULBAC INJ 1.5 GM in SODIUM CHLORIDE 0.9% (Popper) 50 ML IV ×2 (05:20→11:30)
[2025-01-15 05:47] LABS: Basophils # (Auto) 0.1 Thou/mm3 (0.0-0.2); Basophils % (Auto) 1 % (0-2.5); Eosinophils # (Auto) 0.2 Thou/mm3 (0.0-0.5); Eosinophils % (Auto) 3 % (0-10); Hematocrit 36.1 % (36.0-46.0); Hemoglobin 11.6 g/dL (12.0-16.0); Immature Granulocytes Auto 0.03 Thou/mm3 (0.00-0.00); Lymphocytes # (Auto) 1.7 Thou/mm3 (1.0-4.8); Lymphocytes % (Auto) 19 % (10-50); Mean Corpuscular HGB Conc 32.1 g/dl (31.0-37.0); Mean Corpuscular Hemoglobin 30.1 pg (25.0-35.0); Mean Corpuscular Volume 94 fL (80-100); Monocytes # (Auto) 0.5 Thou/mm3 (0.0-0.8); Monocytes % (Auto) 6 % (0-12); Neutrophils # (Auto) 6.6 Thou/mm3 (1.8-7.7); Neutrophils % (Auto) 72 % (37-80); Nucleated Red Blood Cell # 0.00 Thou/mm3 (0.00-0.00); Nucleated Red Blood Cell % 0 /100 WBC (0); Platelet Count 206 Thou/mm3 (140-440); RDW Standard Deviation 44.1 fL (36.4-46.3); Red Blood Count 3.86 Miln/mm3 (4.00-5.20); White Blood Count 9.1 Thou/mm3 (3.6-11.0)
[2025-01-15 06:20] LABS: Alanine Aminotransferase < 7 U/L (10-49); Albumin, Serum 3.3 gm/dL (3.4-4.8); Albumin/Globulin Ratio 1.4 (1.2-2.2); Alkaline Phosphatase 66 U/L (46-116); Anion Gap 8 (7-16); Aspartate Amino Transferase 12 U/L (0-34); BUN/Creatinine Ratio 16 Ratio (12-20); Bilirubin,Total 0.3 mg/dL (0.3-1.2); Blood Urea Nitrogen 13 mg/dL (9-23); Calcium 9.5 mg/dL (8.3-10.6); Calcium (Corrected) 10.1 mg/dL (8.5-10.1); Carbon Dioxide 24.6 mMol/L (20.0-31.0); Chloride 111 mMol/L (98-107); Creatinine (Component) 0.8 mg/dL (0.6-1.3); Estimated Creatinine Clearance 51.4 mL/min (>60); Globulin 2.4 gm/dL (2.3-3.5); Glucose 109 mg/dL (74-106); Magnesium 2.2 mg/dL (1.6-2.6); Osmolality,Calculated 287 (275-295); Phosphorous 3.9 mg/dL (2.4-5.1); Potassium 3.5 mMol/L (3.4-5.1); Sodium 144 mMol/L (136-145); Total Protein 5.7 gm/dL (5.7-8.2); eGFR > 60 See Note
[2025-01-15 07:40] VITALS: BP 128/54; PULSE 67; RESP 18; TEMP 36.4; O2SAT 92
[2025-01-15] MEDS: HYDROcodone/APAP 5/325 TABLET 1 TAB GT (09:33)
--- NOTE | 2025-01-15 10:20 | PCS.ST ---
Swallow Evaluation completed. See report for details. Improved pharyngeal function. No s/s of aspiration. Recommend to try puree diet/regular liquids. PEG as augmented nutrition.
[2025-01-15 10:38] VITALS: PULSE 68; RESP 16; O2SAT 94
[2025-01-15 11:30] VITALS: BP 133/69; PULSE 66; RESP 18; TEMP 36.6; O2SAT 95
[2025-01-15] MEDS: KETOROLAC INJ 30 MG/ML VIAL IVP (11:30)
--- NOTE | 2025-01-15 15:06 | PC.SS ---
SS follow up note: Patient will discharge home today.
--- NOTE | 2025-01-15 19:28 | PD.RESDS ---
Planned Discharge Date 01/15/25 DS: Providers Provider Date of admission: 01/13/25 02:35 Primary care physician: Jihan Bishop PA-C Admitting Provider: Delfina Figueroa MD Attending Provider on Admission: Brenton Koehler MD Consults: 01/13/25 02:39 Consult to Gastroenterology Routine Comment: Consulting Provider: Adi De Dios 01/13/25 02:40 Referral Registered Dietitian Routine Comment: PEG tube feeds 01/13/25 03:47 Referral Physical Therapy Routine Comment: Physician Instructions: 01/13/25 10:59 Referral Wound Care Routine Comment: 01/14/25 09:22 Referral Registered Dietitian Urgent Comment: Instructions: NEW PEG TUBE INSERTION 01/15/25 08:50 Referral Speech Therapy Routine Comment: reassess dysphagia Instructions: Had PEG tube placed last admission. Replaced this admission for malfunction. 01/15/25 12:01 Referral OP Wound Healing Dept Routine Comment: Instructions: Gtube removal site Attending Provider on DC: Miguelito Ferreira DO Discharging Provider: Patrice Araya MD DS: Diagnosis Problem List Completed Was Problem List Reviewed/Reconciled?: Yes Hospital Course Hospital Course Hospital course: This is a 84-year-old female PMHx of oropharyngeal dysphagia s/p PEG tube placement, asthma, HTN, T2DM, tobacco use, and anxiety, presenting to ED on 01/13/25 with malfunctioning PEG tube and pain at stoma site. She was admitted last month for trouble swallowing and was diagnosed with progressive oropharyngeal dysphagia. At that time she underwent went EGD showing proximal esophageal narrowing and underwent dilation and PEG tube placement. Other EGD finding included esophagitis and gastritis. She was discharged on JEVITY per dietitian instruction, and has been using formula as instructed followed by water flushes, administered by her daughter at home. PEG tube had been malfunctioning, unable to push fluid through. Additionally, stoma site has been tender, worsened over the last day. Now severely tended to even minimal agitation. The PEG tube was found to have been pulled out and not in place and gastrograffin study showed obstruction. On presentation, she had a mild leukocytosis but was afebrile. She was started on Unasyn for suspected cellulitis. GI was consulted and agreed to replace the PEG tube which was done on 01/14/25. Her jevity was restarted and she was at goal rate of 50 ml/hr x24 hours on 01/15/25. She was transitioned from unasyn to Clindamycin to complete a 7 day course outpatient. She was subsequently discharged in stable condition. Discharge Diagnoses: PEG tube malfunction Cellulitis Oropharyngeal dysphagia s/p PEG tube Status at Discharge Overall status at discharge: patient is back to baseline Time Spent with Patient Time attestation: Total time spent providing and/or coordinating discharge services: Time spent: Greater than 30 minutes Exam Vital Signs Temp Pulse Resp BP Pulse Ox O2 Del Method O2 Flow Rate 97.8 F 66 18 133/69 H 95 Room Air 3 01/15/25 11:30 01/15/25 11:30 01/15/25 11:30 01/15/25 11:30 01/15/25 11:30 01/15/25 11:30 01/14/25 09:20 Narrative Exam General:Elderly patient, no acute distress, HEENT: No JVD noted. Mucosa moist. Pupils are equal Cardiovascular: Regular rate and rhythm. No murmur appreciated Respiratory: No tachypnea or labored speech Abdomen: Abdominal binder in place. Tenderness to palpation near old PEG site. There is seropurulent drainage from that site. PEG base is loose around the skin and moves about freely. Skin: Dry, no rashes or bruising Musculoskeletal: No gross injuries. Able to move all 4 extremities. Non edematous lower extremities. Neuro: Alert and oriented x3. No focal neuro deficits. Psych: Normal affect and mood Discharge Plan Plan Patient Disposition: HOME (Self Care) Patient condition on transfer: Stable Prescriptions/Referrals Prescriptions/Med Rec: New clindamycin HCl 300 mg capsule 300 mg feeding tube Q6H 5 Days Qty: 20 0RF No Action lorazepam 0.5 mg tablet 0.5 mg PO QDAY lisinopril 10 mg tablet 10 mg PO QDAY Patient Comments: TAKE ONE TABLET BY MOUTH EVERY DAY FOR BLOOD PRESSURE albuterol sulfate 90 mcg/actuation HFA aerosol inhaler 2 puff INHALATION Q6H PRN (Reason: Wheezing) Patient Comments: INHALE TWO PUFFS BY MOUTH EVERY 6 TO 8 HOURS NEEDED hydrocodone-acetaminophen 10-325 mg tablet 1 tab PO TID PRN (Reason: breakthrough pain) Qty: 0 0RF escitalopram oxalate 10 mg tablet 10 mg PO QDAY Patient Comments: TAKE ONE TABLET BY MOUTH EVERY DAY ibuprofen 600 mg tablet 600 mg PO Q6H PRN (Reason: pain) Patient Comments: TAKE ONE TABLET BY MOUTH EVERY 6 TO 8 HOURS WITH FOOD OR MILK NEEDED FOR PAIN atorvastatin 20 mg tablet 20 mg PO HS Patient Comments: TAKE ONE TABLET BY MOUTH AT BEDTIME FOR CHOLESTEROL pantoprazole [Protonix] 40 mg tablet,delayed release (DR/EC) 40 mg PO QDAY Qty: 30 0RF Jevity 1.5 Clint 0.06 gram-1.5 kcal/mL liquid 1 ea feeding tube 5 TIMES DAILY Qty: 5688 0RF Rx Instructions: 240 mL 5 times daily ondansetron HCl 4 mg/5 mL solution 4 mg feeding tube Q8H PRN (Reason: nausea and vomiting) Qty: 100 0RF Referrals: Jihan Bishop PA-C [Primary Care Provider, [facility]] Patient/Caregiver Discharge Instructions Other Discharge Activity Instructions:: 1) Reevaluation by speech pathology recommends patient to start pur?es/regular liquid meals with supplemental of PEG feeding. If patient tolerates for several days may advance textures. 2) Patient should follow-up with GI in 1 week. 3) Follow-up with PCP in 1 to 2 weeks. 4) Complete antibiotic course as prescribed for 5 more days. 5) Clean new PEG site every shift with Betadine, turning disk 50% each dressing. Secure tubing to abdomen ensuring no tension on tube at skin level. Please wear abdominal binder to ensure tube stays in place. 6)Follow up at [facility], [address] [place] [address]. Call [phone] for appointment Wound care to abdomen: Wash hands with soap and water. Remove old dressing including packing, may saturate packing with saline or wound cleanser to help loosen for removal. Irrigate wound with wound cleanser spray well and pat dry with gauze. Gently press on the skin around wound expressing wound drainage, pat dry. Wash hands again. Pack wound with 1/2 in strip packing starting at top of the wound, fill under the skin clock massey until resistance is felt than fill in entire cavity is full. Cover with dry gauze and tape. Change once a day and as needed for saturating or soiling. If active bleeding occurs, apply tight dressing and return to MD or ER. ?Notify primary doctor or return to Emergency Room if any of the following: ?Fever above 100.6? F. ?Increased pain ?Increase swelling ?Red streaks around your wound ?Drainage becomes foul smelling or changes color ?The wound is larger or deeper ?The wound looks dried out or dark ?Bleeding that does not stop with holding pressure Education Materials: Discharge Instructions Caring ..., Changing Dressing Dc, Discharge Instructions Wound ..., Dysphagia Aspiration, ED Feeding Tube Replacement, ED Dysphagia (Adult) Print Language: Ecuadorean Stand Alone Forms: [employer] Award Info., Patient Portal Info Letter, Work/Release Restrictions Discharge Order Discharge Orders: Discharge (Routine); Ordered 01/15/25 Ordered By: Rosetta Costello Quality Discharge Quality Measures none MD Attestestation MD Attestation I have discussed and was present for the essential components of the discharge history, physical examination, diagnosis, and discharge treatment plan with the resident. I agree with the patient's discharge care as documented by the resident and amended herein by me. Demar Ferreira, DO. PEG tube satisfactory replaced, tolerating tube feeds well. Patient's discharge with short course of clindamycin for previous PEG tube site cellulitis, recommend DC follow-up within 7 to 10 days of discharge for further evaluation. Patient was stable, afebrile tolerating tube feeds at time of discharge. Although this document has been carefully reviewed, there may still be some phonetic and other typographical errors. These errors are purely grammatical due to imperfections in the software program and should not be construed in any way to compromise the substance of the patient's medical care during this visit.
== END 2025-01-15 14:55 | disposition home or self-care (01) ==
LOC: SERX 01-13 02:08 → SERHOLD 01-13 03:02 → S3NX 01-13 08:26 → SERHOLD 01-13 13:10
PROVIDERS: Nurse Practitioner Family; Specialist; Admitting Provider Student in an Organized Health Care Education/Training Program; Emergency Provider Emergency Medicine; PCP Physician Assistant; Visit Provider Student in an Organized Health Care Education/Training Program
PROC: 0DH63UZ Insertion of Feeding Device into Stomach, Percutaneous Approach (ICD-10-PCS; CPT 43246; principal; 2025-01-14 08:00)
DX: K94.23 Gastrostomy malfunction (principal); R13.12 Dysphagia, oropharyngeal phase; L03.818 Cellulitis of other sites; E78.5 Hyperlipidemia, unspecified; I10 Essential (primary) hypertension; F41.9 Anxiety disorder, unspecified; J45.909 Unspecified asthma, uncomplicated; E83.52 Hypercalcemia; E11.9 Type 2 diabetes mellitus without complications
CPT/HCPCS: 43246; 36415; 74018; 80053; 83735; 84100; 85025; 85610; 85730; 92610; 94664; 96361; 96372; 96374; 96375; 96376; 97162; 99284; A4649; G0378; J0131; J0295; J1200; J1644; J1885; J2250; J2270; J2470; J3010; J7030; J7050; Q9963; A9270